=== PATIENT | female | born 1960 | race Caucasian/White ===

== ENCOUNTER 2017-01-27 09:43 | Emergency (ER) | payer OTHER ==
[~2017-01-27] VITALS: Ht 152.4 cm; Wt 69.9 kg
[2017-01-27] MEDS ORDERED: ALBU83IN (09:56)
[2017-01-27] MEDS ORDERED: SIMV40TA2 (09:56)
[2017-01-27] MEDS ORDERED: MELA5TAB17 (09:56)
[2017-01-27] MEDS ORDERED: ANOR1AER (09:56)
[2017-01-27] MEDS ORDERED: CLOP75TA2 (09:56)
[2017-01-27] MEDS ORDERED: CARV25TA (09:56)
[2017-01-27] MEDS ORDERED: NITR0.4S14 (09:56)
[2017-01-27] MEDS ORDERED: SIMV20TA2 (09:56)
[2017-01-27] MEDS ORDERED: OMEP40CA2 (09:56)
[2017-01-27] MEDS ORDERED: ANORO (09:56)
[2017-01-27] MEDS ORDERED: LISI-542 (09:56)
[2017-01-27] MEDS ORDERED: KETOROLAC 30 MG/ML VIAL (J1885) IV ONE (10:45)
[2017-01-27] MEDS ORDERED: GASTROGRAFIN SOLUTION 30ML (Q9963) As Ordered ONE (11:06)
[2017-01-27] MEDS ORDERED: GASTROGRAFIN SOLUTION 30ML PO ONE (11:15)
[2017-01-27 11:22] LABS: BASO # 0.1 K/mm3 (0.0-0.2); BASO % 0.8 % (0.0-1.0); EOS # 0.1 K/mm3 (0.0-0.50); LARGE UNSTAINED CELL # 0.1 K/mm3 (0.0-0.4); LARGE UNSTAINED CELL % 1.1 % (0.0-4.0); LYMPH # 1.9 K/mm3 (1.5-4.5); LYMPH % 20.1 % (24.0-44.0); MEAN CORPUSCULAR HEMOGLOBIN 32.2 pg (27.0-33.0); MEAN CORPUSCULAR HGB CONC 32.8 g/dl (32.0-36.5); MEAN CORPUSCULAR VOLUME 98.1 fl (80.0-96.0); MONO # 0.4 K/mm3 (0.0-0.8); MONO % 4.1 % (0.0-5.0); NEUTROPHILS # 6.5 K/mm3 (1.8-7.7); NEUTROPHILS % 72.9 % (36.0-66.0); PLATELET COUNT, AUTOMATED 183 k/mm3 (150-450); RED CELL DISTRIBUTION WIDTH 13.8 % (11.5-14.5); WHITE BLOOD COUNT 8.9 K/mm3 (4.0-10.0)
[2017-01-27] MEDS ORDERED: GASTROGRAFIN SOLUTION 30ML (Q9963) PO ONE (11:45)
[2017-01-27 11:47] LABS: ALBUMIN 3.5 GM/DL (3.2-5.2); ALBUMIN/GLOBULIN RATIO 0.76 (1.00-1.93); ALKALINE PHOSPHATASE 113 U/L (45-117); ALT/SGPT 18 U/L (12-78); AMYLASE 47 U/L (25-115); ANION GAP 4 MEQ/L (8-16); AST/SGOT 12 U/L (15-37); BILIRUBIN,DIRECT 0.1 MG/DL (0.0-0.2); BILIRUBIN,TOTAL 0.4 MG/DL (0.2-1.0); BLOOD UREA NITROGEN 13 MG/DL (7-18); CALCIUM LEVEL 9.5 MG/DL (8.5-10.1); CARBON DIOXIDE LEVEL 28 MEQ/L (21-32); CHLORIDE LEVEL 105 MEQ/L (98-107); CREATININE FOR GFR 0.63 MG/DL (0.55-1.02); GLOMERULAR FILTRATION RATE > 60.0 (>51); GLUCOSE, FASTING 121 MG/DL (70-105); POTASSIUM SERUM 4.4 MEQ/L (3.5-5.1); SODIUM LEVEL 137 MEQ/L (136-145); TOTAL PROTEIN 8.1 GM/DL (6.4-8.2)
[2017-01-27] MEDS ORDERED: ISOVUE-370 76% 100ML VIAL (Q9967) As Ordered ONE (12:10)
[2017-01-27 13:12] VITALS: BP 115/46
[2017-01-27] MEDS ORDERED: NORCOTAB PO (13:13)
--- NOTE | 2017-01-27 13:29 | REP ---
CT abdomen and pelvis with IV and oral contrast: History: Epigastric pain. Right upper quadrant pain. History of multiple hernias. Question gallstone. Comparison CT study is from February 18, 2014. CT contrast dose: 100 mL of Isovue [address] findings: Preliminary meat stocker radiograph is unremarkable. The lung bases are essentially clear. There is a bolus in the left lower lobe anteromedially. This it is unchanged. The liver and the spleen are normal in size and homogeneous in texture. There is a small accessory splenule again noted. No adrenal lesion is seen. The pancreas is unremarkable. There are two calcified gallstones in the gallbladder. The largest of these measures 1.1 cm. The other is in the gallbladder neck. No intrahepatic biliary ductal dilation is observed. No adrenal lesion is seen. There is no evidence of hydronephrosis on either side. No renal mass or significant cyst is seen. There is an aortobifemoral bypass graft which is patent. The [place] distal aorta is occluded. Small and large intestinal bowel loops are unremarkable. No uterine or ovarian abnormality is seen. The urinary bladder is largely empty at the time of scanning. No bony destructive lesion is seen. There are two ventral hernias located above the level of the umbilicus each transmitting intra-abdominal fat. The more cephalic abdominal wall defect measures 1.9 cm in right to left dimension. The larger more caudal defect in the anterior abdominal wall measures 2.6 cm medial to lateral. Impression: Two epigastric hernias, each transmitting omental fat. Opaque gallstones. No other significant abnormality. Signed by Sulaiman Mason MD 01/27/2017 02:48 P
== END 2017-01-27 13:26 | disposition home or self-care (01) ==
LOC: M ED 09:43
DX: K80.70 Calculus of gallbladder and bile duct without cholecystitis without obstruction (principal); I10 Essential (primary) hypertension; I25.2 Old myocardial infarction; Z72.0 Tobacco use
CPT/HCPCS: 36415; 74177; 80048; 80076; 81001; 82150; 83605; 83690; 85025; 96374; 99284; J1885; Q9963; Q9967

== ENCOUNTER 2017-05-02 10:34 | Inpatient (IN) | payer OTHER ==
[~2017-05-02] VITALS: Ht 152.4 cm; Wt 69.9 kg
[~2017-05-02 10:34] MED LIST: ALBU83IN INH; ANOR1AER INH; ANORO; CARV25TA PO; CLOP75TA2; LISI-542 PO; MELA5TAB17 PO; NITR0.4S14 SL; NORCOTAB PO; OMEP40CA2 PO; SIMV20TA2 PO; SIMV40TA2
[2017-05-02] MEDS ORDERED: NS 1,000 ML IV ONE (11:15)
[2017-05-02] MEDS ORDERED: ONDANSETRON 4MG/2ML VIAL (J2405) IV ONE (11:15)
[2017-05-02] MEDS: MORPHINE 4 MG/ML 1ML SYRINGE IV PRN ×2 (11:29→12:36)
[2017-05-02 11:31] LABS: BASO % 0.2 % (0.0-1.0); EOS % 0.1 % (0.0-3.0); IMMATURE GRANULOCYTE % 0.6 % (0-0); LYMPH # 1.7 10^3/uL (1.5-4.5); MEAN CORPUSCULAR HEMOGLOBIN 31.7 pg (27.0-33.0); MEAN CORPUSCULAR HGB CONC 33.6 g/dl (32.0-36.5); MEAN CORPUSCULAR VOLUME 94.4 fl (80.0-96.0); MONO # 1.8 10^3/uL (0.0-0.8); MONO % 10.6 % (0.0-5.0); NEUTROPHILS # 13.3 10^3/uL (1.8-7.7); NEUTROPHILS % 78.5 % (36.0-66.0); PLATELET COUNT, AUTOMATED 185 10^3/uL (150-450); RED CELL DISTRIBUTION WIDTH 13.7 % (11.5-14.5)
[2017-05-02 11:53] LABS: ALBUMIN 3.2 GM/DL (3.2-5.2); ALBUMIN/GLOBULIN RATIO 0.67 (1.00-1.93); ALKALINE PHOSPHATASE 101 U/L (45-117); ALT/SGPT 15 U/L (12-78); ANION GAP 8 MEQ/L (8-16); AST/SGOT 8 U/L (7-37); BILIRUBIN,DIRECT 0.3 MG/DL (0.0-0.2); BILIRUBIN,TOTAL 1.2 MG/DL (0.2-1.0); BLOOD UREA NITROGEN 9 MG/DL (7-18); CALCIUM LEVEL 9.2 MG/DL (8.5-10.1); CARBON DIOXIDE LEVEL 27 MEQ/L (21-32); CHLORIDE LEVEL 99 MEQ/L (98-107); CREATININE FOR GFR 0.58 MG/DL (0.55-1.02); GLOMERULAR FILTRATION RATE > 60.0 (>51); GLUCOSE, FASTING 136 MG/DL (70-105); POTASSIUM SERUM 3.9 MEQ/L (3.5-5.1); SODIUM LEVEL 134 MEQ/L (136-145)
[2017-05-02] MEDS ORDERED: MORPHINE 2 MG/ML 1ML SYRINGE IV ONE (20:30)
--- NOTE | 2017-05-02 21:10 | REPUSA ---
Clinical history: Pain. Technique: T2 weighted images of the upper abdomen were obtained. MIP images of the biliary ducts wit h 3-D reconstructions were obtained for the cholangiogram portion of the study. No comparison is available. Findings: The biliary ducts demonstrate normal caliber and contour. No stenosis, narrowing, or intral uminal filling defect is seen. The gallbladder contains a fluid fluid level. There is also several sm all gallstones seen within the gallbladder. One stone located in the gallbladder neck. There is moder ate gallbladder wall thickening. The common bile duct is within normal limits. There is no intrahepat ic biliary ductal dilatation. The pancreatic duct is not visualized. The visualized portions of the l iver, spleen, pancreas, and adrenal glands are unremarkable. There is no abdominal lymphadenopathy. I s a small amount of. Rodrick cystic free fluid. Small bilateral renal cysts are noted. The osseous struc tures and soft tissues are unremarkable. Impression: 1. Cholelithiasis with gallbladder sludge. Gallbladder wall thickening with small amount of perichole cystic free fluid. No evidence of biliary ductal dilatation. Findings are suspicious for early acute cholecystitis. Ultrasound is recommended if there is further clinical concern. 2. Small bilateral renal cysts.
[2017-05-02] MEDS ORDERED: METOCLOPRAMIDE INJ 10MG/2ML VIAL (J2765) IV PRN (21:30)
[2017-05-02] MEDS ORDERED: ONDANSETRON 4MG/2ML VIAL (J2405) IV PRN (21:30)
[2017-05-02] MEDS ORDERED: PERCOCET 5MG/325MG TAB PO PRN (21:30)
[2017-05-02] MEDS ORDERED: MORPHINE 2 MG/ML 1ML SYRINGE IV PRN (21:30)
[2017-05-02] MEDS ORDERED: KETOROLAC 30 MG/ML VIAL (J1885) IV PRN (21:30)
[2017-05-02] MEDS ORDERED: PROMETHAZINE INJ 25 MG/ML VIAL (J2550) IV PRN (21:30)
[2017-05-02 23:32] VITALS: BP 135/63
[2017-05-02 23:33] VITALS: BP 135/63
[2017-05-03] VITALS (7 sets, daily range): BP systolic 106–152; BP diastolic 50–68
[2017-05-03] MEDS: MORPHINE 4 MG/ML 1ML SYRINGE IV PRN ×2 (00:01→09:56)
[2017-05-03] MEDS: PIPERACILLIN/TAZOBACTAM SOD 3.375 GM in APPROPRIATE DILUENT 1 EA IV SCH ×5 (00:36→23:56)
[2017-05-03] MEDS: NS 1,000 ML IV SCH ×2 (05:59)
[2017-05-03 06:45] LABS: MEAN CORPUSCULAR HEMOGLOBIN 31.4 pg (27.0-33.0); MEAN CORPUSCULAR HGB CONC 32.6 g/dl (32.0-36.5); MEAN CORPUSCULAR VOLUME 96.3 fl (80.0-96.0); PLATELET COUNT, AUTOMATED 152 10^3/uL (150-450); RED CELL DISTRIBUTION WIDTH 13.8 % (11.5-14.5)
[2017-05-03 07:21] LABS: ALBUMIN 2.6 GM/DL (3.2-5.2); ALBUMIN/GLOBULIN RATIO 0.65 (1.00-1.93); ALKALINE PHOSPHATASE 82 U/L (45-117); ALT/SGPT 15 U/L (12-78); ANION GAP 7 MEQ/L (8-16); AST/SGOT 9 U/L (7-37); BILIRUBIN,TOTAL 1.4 MG/DL (0.2-1.0); BLOOD UREA NITROGEN 9 MG/DL (7-18); CALCIUM LEVEL 8.3 MG/DL (8.5-10.1); CARBON DIOXIDE LEVEL 26 MEQ/L (21-32); CHLORIDE LEVEL 105 MEQ/L (98-107); CREATININE FOR GFR 0.51 MG/DL (0.55-1.02); GLOMERULAR FILTRATION RATE > 60.0 (>51); GLUCOSE, FASTING 76 MG/DL (70-105); POTASSIUM SERUM 3.6 MEQ/L (3.5-5.1); SODIUM LEVEL 138 MEQ/L (136-145); TOTAL PROTEIN 6.6 GM/DL (6.4-8.2)
[2017-05-03] MEDS: CARVedilol 12.5 MG TAB PO SCH ×2 (09:00→21:00)
[2017-05-03] MEDS: LISINOPRIL 5 MG TAB PO SCH (09:00)
[2017-05-03] MEDS ORDERED: NITROGLYCERIN 0.4 MG SUBL TABLET SL PRN (09:30)
[2017-05-03] MEDS ORDERED: IPRATROPIUM 0.5MG/ALBUTEROL 2.5MG INH SOL UD 3ML (DUONEB)(J7620) NEB PRN (09:30)
[2017-05-03] MEDS: PANTOPRAZOLE 40MG INJ (PROTONIX) (C9113) IV SCH (09:55)
[2017-05-03] MEDS: PERCOCET 5MG/325MG TAB PO PRN (17:02)
[2017-05-03] MEDS ORDERED: SIMVASTATIN 20 MG TAB PO SCH (21:00)
[2017-05-04] VITALS (8 sets, daily range): BP systolic 118–188; BP diastolic 57–79
[2017-05-04] MEDS: PERCOCET 5MG/325MG TAB PO PRN (03:23)
[2017-05-04] MEDS: PIPERACILLIN/TAZOBACTAM SOD 3.375 GM in APPROPRIATE DILUENT 1 EA IV SCH ×2 (05:50→11:44)
--- NOTE | 2017-05-04 07:13 | HPE ---
DATE OF ADMISSION: 05/02/2017 HISTORY OF PRESENT ILLNESS: The patient is a 56-year-old female who presented to the emergency room yesterday with abdominal pain, right upper quadrant, but also epigastric and she stated that her gallstones were bothering her epigastric hernia. She has had an epigastric hernia that has been symptomatic over the years and presents now for a possible cholecystitis. She was seen a few months ago for right upper quadrant pain, epigastric pain and this revealed epigastric hernia with omental fat within this but no other significant abnormality. The patient did have some gallstones. She has not had any acholic stools. No bilirubinuria. She has had no fevers or chills. She presents now with this epigastric pain, came to the emergency room with elevated white count of 17,000, some mildly elevated liver function tests and evidence of gallstones, without evidence of gallbladder wall thickening. However, she did have questionable common bile duct that was slightly enlarged. She had some gallbladder when this was found and with this slight elevation of the liver function tests, she underwent an MRCP which showed gallbladder wall thickening with a small amount of pericholecystic fluid. No evidence of biliary ductal dilatation, but significant for possible early acute cholecystitis. In any case, at this point given her epigastric pain, discomfort and right upper quadrant pain and discomfort she was admitted for further evaluation, antibiotics and treatment. PAST MEDICAL HISTORY: Her past medical history is significant for history of hypertension, history of gallstones, history of hiatal hernia, history of ventral hernia, history of COPD, history of hyperlipidemia, history of cardiac stents, history of C-sections, history of peripheral artery bypass. MEDICATIONS: Include the following: - simvastatin - albuterol - nitroglycerin - lisinopril - carvedilol - omeprazole - melatonin PHYSICAL EXAMINATION: Reveals a 56-year-old female who looks older than stated age. HEENT is unremarkable. Neck: Supple without any lymphadenopathy. Lungs are clear to auscultation without crackles, wheezes or rhonchi. Heart is regular without murmur. Abdomen is soft, nondistended, nontender except in the epigastric area where she has some mild tenderness to palpation as well as in the right upper quadrant. She has some mild tenderness to palpation. She has some epigastric hernias that are not reducible at this time but it feels as though omental fat or preperitoneal fat that is within these. IMPRESSION AND PLAN: The patient has evidence of probable cholecystitis. Given her ventral hernias at this time, I am very concerned that these ventral hernias will be difficult to work around to take out her gallbladder and may not be amendable to a laparoscopic approach for this cholecystectomy. And in addition, I do feel that given that she has these ventral hernias she may benefit from a ventral hernia repair as well. She has had a previous ventral hernia repair in the past, which suggests she probably had mesh within this, also concerning for possible infection perioperatively. She has had any aortobifemoral bypass in the past and does not complain of claudication at this time. The patient has evidence of cholecystitis. Will plan on IV fluids, IV antibiotics, make her nothing by mouth (npo) overnight and watch her over the ensuing 12 to 24 hours; depending on how she does, if she has some progressive improvement and resolution of her abdominal pain, will start her on some clear liquids and then possibly advance her diet as tolerated. It would the best option for her if we can cool down her gallbladder enough to perform an elective cholecystectomy and at that point if there is no bile spillage and overall appears to be an unaffected area it may be reasonable to proceed with a ventral hernia repair at that same time, understanding that she would have an increased risk of perioperative infection. She understands and would like to continue on the current plan/proposed treatment for now.
[2017-05-04] MEDS: PANTOPRAZOLE 40MG INJ (PROTONIX) (C9113) IV SCH (08:41)
[2017-05-04] MEDS: CARVedilol 12.5 MG TAB PO SCH (08:44)
[2017-05-04] MEDS: LISINOPRIL 5 MG TAB PO SCH ×2 (08:45→13:14)
[2017-05-04] MEDS ORDERED: SLF 3 ML SYR IV PRN (09:00)
--- NOTE | 2017-05-04 13:35 | IPN ---
DATE: 05/04/2017 Patient overall has been afebrile throughout the night and she has had decreasing pain without nausea, without vomiting. And no fevers, no chills. She has tolerated some liquids without significant problems. And overall having slow but progressive improvement of her symptoms. On her physical exam, she still has some mild tenderness in the epigastric area where her hernias are. Although, I do feel that probably with this localized inflammation of her gallbladder she has some inflammatory changes in this area that is causing some mild distension and gastrointestinal (GI) issues, which are causing some mild distension in this upper abdomen, possibly making her hernia slightly more symptomati, but does not appear to have a truly incarcerated bowel or intestine within this. She otherwise, seems to be making some slow but progressive improvement. IMPRESSION/PLAN: Patient has cholecystitis. Seems to be making some nice improvements slowly clinically. At this point, my recommendation is that we progress her diet to low fat diet and when she is tolerating a low-fat diet will discharge to her home. This may actually be today given her significant improvement over the last 24 hours. And I anticipate we will discharge her on some oral antibiotics with the plan in the future for a ventral hernia repair as well as laparoscopic cholecystectomy. This may be a combined operative intervention but we will have to see how she does with resolution of this infectious process.
[2017-05-04] MEDS ORDERED: SLF 3 ML SYR IV SCH (14:00)
[2017-05-04] MEDS ORDERED: PERCOCET PO (14:19)
[2017-05-04] MEDS ORDERED: AMOX875T2 PO (14:19)
[2017-05-04] MEDS ORDERED: AUGMENTIN 875 MG TAB PO SCH (21:00)
--- NOTE | 2017-05-05 07:11 | REP ---
Clinical: Right upper quadrant pain. Technique: Real time fernandez scale ultrasound examination using curved array transducer. Findings: A positive sonographic Eastman's sign is elicited and the gallbladder is distended and demonstrates cholelithiasis within 8 mm gallstone lodged at the neck of the gallbladder. The common bile duct is mildly dilated to 8.1 mm and findings are consistent with acute cholecystitis. Correlation is recommended. Fatty infiltration to the liver noted without focal hepatic lesion. Limited evaluation the pancreas is unremarkable. The right kidney measures 9.9 x 5.6 x 4.6 cm without evidence for hydronephrosis. No ascites. Impression: Findings described above suggest acute cholecystitis and correlation is recommended. Signed by Mkcinley Gentile MD 05/02/2017 12:22 P
== END 2017-05-04 15:00 | disposition home or self-care (01) ==
LOC: M ED 10:34 → M ED INP 21:28 → M PED 23:30
PROVIDERS: ADMIT Surgery; ATTEND Surgery
DX: K80.00 Calculus of gallbladder with acute cholecystitis without obstruction (principal); J44.9 Chronic obstructive pulmonary disease, unspecified; I10 Essential (primary) hypertension; K44.9 Diaphragmatic hernia without obstruction or gangrene; K43.9 Ventral hernia without obstruction or gangrene; E78.5 Hyperlipidemia, unspecified; Z95.5 Presence of coronary angioplasty implant and graft; Z98.62 Peripheral vascular angioplasty status; Z79.899 Other long term (current) drug therapy

== ENCOUNTER 2017-06-05 08:37 | Emergency (ER) | payer OTHER ==
[2017-06-05] MEDS: NS 500 ML IV (09:15)
[2017-06-05] MEDS: ONDANSETRON 4MG/2ML VIAL (J2405) IV (09:25)
[2017-06-05] MEDS: MORPHINE 4 MG/ML 1ML SYRINGE IV ×3 (09:25→12:41)
[2017-06-05 09:26] LABS: BASO # 0.1 10^3/uL (0.0-0.2); BASO % 0.9 % (0.0-1.0); EOS # 0.2 10^3/uL (0.0-0.50); HEMOGLOBIN 14.5 g/dl (12.0-16.0); IMMATURE GRANULOCYTE % 0.3 % (0-0); LYMPH # 2.5 10^3/uL (1.5-4.5); LYMPH % 21.2 % (24.0-44.0); MEAN CORPUSCULAR HEMOGLOBIN 31.7 pg (27.0-33.0); MEAN CORPUSCULAR VOLUME 96.1 fl (80.0-96.0); MONO # 0.9 10^3/uL (0.0-0.8); MONO % 7.8 % (0.0-5.0); NEUTROPHILS # 7.9 10^3/uL (1.8-7.7); NEUTROPHILS % 67.8 % (36.0-66.0); PLATELET COUNT, AUTOMATED 186 10^3/uL (150-450); RED BLOOD COUNT 4.58 10^6/uL (4.00-5.40); RED CELL DISTRIBUTION WIDTH 13.8 % (11.5-14.5); WHITE BLOOD COUNT 11.6 10^3/uL (4.0-10.0)
[2017-06-05 09:48] LABS: KETONE, URINE AUTO RFX TRACE mg/dL (NEGATIVE); LEUKOCYTE ESTERASE UR AUTO RFX NEGATIVE (NEGATIVE); MUCUS, URINE RFX SMALL (NEGATIVE); NITRITE, URINE AUTO RFX NEGATIVE (NEGATIVE); RBC, URINE AUTO RFX 0 /HPF (0-3); SPECIFIC GRAVITY UR AUTO RFX 1.029 (1.002-1.035); SQUAM EPITHELIAL CELL UR AURFX 2 /HPF (0-6); WBC, URINE AUTO RFX 0 /HPF (0-3)
[2017-06-05 09:52] LABS: ALBUMIN 3.6 GM/DL (3.2-5.2); ALBUMIN/GLOBULIN RATIO 0.82 (1.00-1.93); ALKALINE PHOSPHATASE 108 U/L (45-117); ALT/SGPT 22 U/L (12-78); AMYLASE 38 U/L (25-115); ANION GAP 7 MEQ/L (8-16); AST/SGOT 15 U/L (7-37); BILIRUBIN,DIRECT 0.1 MG/DL (0.0-0.2); BILIRUBIN,TOTAL 0.5 MG/DL (0.2-1.0); BLOOD UREA NITROGEN 16 MG/DL (7-18); CALCIUM LEVEL 9.3 MG/DL (8.5-10.1); CARBON DIOXIDE LEVEL 26 MEQ/L (21-32); CHLORIDE LEVEL 105 MEQ/L (98-107); CREATININE FOR GFR 0.61 MG/DL (0.55-1.02); GLOMERULAR FILTRATION RATE > 60.0 (>51); GLUCOSE, FASTING 140 MG/DL (70-105); LIPASE 127 U/L (73-393); POTASSIUM SERUM 4.3 MEQ/L (3.5-5.1); SODIUM LEVEL 138 MEQ/L (136-145)
[2017-06-05] MEDS: CEFTRIAXONE SOD 1 GM in APPROPRIATE DILUENT 1 EA IV (12:30)
== END 2017-06-05 13:43 | disposition home or self-care (01) ==
LOC: M ED 08:37
DX: K80.60 Calculus of gallbladder and bile duct with cholecystitis, unspecified, without obstruction (principal); K43.9 Ventral hernia without obstruction or gangrene; I10 Essential (primary) hypertension; J44.9 Chronic obstructive pulmonary disease, unspecified; E78.00 Pure hypercholesterolemia, unspecified; Z86.73 Personal history of transient ischemic attack (TIA), and cerebral infarction without residual deficits; Z79.899 Other long term (current) drug therapy; Z79.51 Long term (current) use of inhaled steroids; F17.210 Nicotine dependence, cigarettes, uncomplicated
CPT/HCPCS: J2405

== ENCOUNTER → 2017-06-24 | Day surgery (SDC) | payer OTHER ==
[~2017-06-24] MED LIST changes: -ALBU83IN INH; -ANOR1AER INH; -ANORO; -CARV25TA PO; +CEFAZOLIN SOD 1 GM in APPROPRIATE DILUENT 1 EA IV; -CLOP75TA2; +LIDOCAINE 2% INJ 100 MG/5 ML SDV (FOR ANES.) As Ordered; -LISI-542 PO; +LR 1,000 ML IV; -MELA5TAB17 PO; -NITR0.4S14 SL; -NORCOTAB PO; -OMEP40CA2 PO; +PROPOFOL 200 MG/20 ML VIAL As Ordered; +ROCURONIUM BROMIDE 50 MG/5 ML VIAL As Ordered; -SIMV20TA2 PO; -SIMV40TA2; +fentaNYL 250 MCG/5 ML INJECTION (J3010) As Ordered
== END ==
LOC: M SDC 08:50
DX: K43.2 Incisional hernia without obstruction or gangrene (principal); K80.20 Calculus of gallbladder without cholecystitis without obstruction; Z53.09 Procedure and treatment not carried out because of other contraindication

== ENCOUNTER 2017-07-24 15:19 | Emergency (ER) | payer OTHER ==
[2017-07-24 16:12] LABS: BASO # 0.1 10^3/uL (0.0-0.2); BASO % 0.3 % (0.0-1.0); EOS # 0.3 10^3/uL (0.0-0.50); EOS % 2.1 % (0.0-3.0); HEMATOCRIT 41.4 % (36.0-47.0); HEMOGLOBIN 13.5 g/dl (12.0-16.0); IMMATURE GRANULOCYTE % 0.6 % (0-3.0); LYMPH # 2.6 10^3/uL (1.5-4.5); LYMPH % 18.2 % (24.0-44.0); MEAN CORPUSCULAR HEMOGLOBIN 31.4 pg (27.0-33.0); MEAN CORPUSCULAR HGB CONC 32.6 g/dl (32.0-36.5); MEAN CORPUSCULAR VOLUME 96.3 fl (80.0-96.0); MONO # 1.4 10^3/uL (0.0-0.8); MONO % 9.4 % (0.0-5.0); NEUTROPHILS % 69.4 % (36.0-66.0); PLATELET COUNT, AUTOMATED 236 10^3/uL (150-450); RED CELL DISTRIBUTION WIDTH 13.9 % (11.5-14.5); WHITE BLOOD COUNT 14.4 10^3/uL (4.0-10.0)
[2017-07-24] MEDS: NITROGLYCERIN 0.4 MG SUBL TABLET SL (16:12)
[2017-07-24] MEDS: ASPIRIN 81 MG CHEW TABLET PO (16:22)
[2017-07-24 16:24] LABS: PARTIAL THROMBOPLASTIN TIME 31.4 SECONDS (26.8-37.9)
[2017-07-24 16:29] LABS: ANION GAP 8 MEQ/L (8-16); BLOOD UREA NITROGEN 16 MG/DL (7-18); CALCIUM LEVEL 9.2 MG/DL (8.5-10.1); CARBON DIOXIDE LEVEL 25 MEQ/L (21-32); CHLORIDE LEVEL 106 MEQ/L (98-107); CPK CREATINE PHOSPHOKINASE 23 U/L (26-192); CREATININE FOR GFR 0.73 MG/DL (0.55-1.30); GLOMERULAR FILTRATION RATE > 60.0 (>51); GLUCOSE, FASTING 127 MG/DL (70-100); MB/CK RELATIVE INDEX 4.34 (< OR =4); POTASSIUM SERUM 4.2 MEQ/L (3.5-5.1); SODIUM LEVEL 139 MEQ/L (136-145); TROPONIN I < 0.02 NG/ML (< 0.10)
[2017-07-24 22:07] LABS: CK-MB VALUE MASS 5.2 NG/ML (0.0-3.6); CPK CREATINE PHOSPHOKINASE 55 U/L (26-192); MB/CK RELATIVE INDEX 9.45 (< OR =4)
[2017-07-24 22:11] LABS: TROPONIN I 1.73 NG/ML (< 0.10)
[2017-07-24] MEDS: NICOTINE 14 MG/24 HR TRANSDERMAL TD (22:30)
[2017-07-24] MEDS: HEPARIN SOD (PORCINE) 5000 UNITS/ML VIAL IV (22:41)
[2017-07-24] MEDS: HEPARIN DRIP 25,000 UNITS in APPROPRIATE DILUENT 1 EA IV (22:43)
== END 2017-07-24 23:39 | disposition home or self-care (01) ==
LOC: M ED 15:19
DX: I21.4 Non-ST elevation (NSTEMI) myocardial infarction (principal); I10 Essential (primary) hypertension; J44.9 Chronic obstructive pulmonary disease, unspecified; I25.10 Atherosclerotic heart disease of native coronary artery without angina pectoris; K44.9 Diaphragmatic hernia without obstruction or gangrene; K43.9 Ventral hernia without obstruction or gangrene; Z95.5 Presence of coronary angioplasty implant and graft; F17.210 Nicotine dependence, cigarettes, uncomplicated
CPT/HCPCS: 71045

== ENCOUNTER 2017-08-04 16:35 | Emergency (ER) | payer MEDICAID, SELFPAY, OTHER ==
[2017-08-04] MEDS: ONDANSETRON 4MG/2ML VIAL (J2405) IV ×2 (18:11)
[2017-08-04] MEDS: NS 1,000 ML IV ×2 (18:11)
[2017-08-04] MEDS: MORPHINE 4 MG/ML 1ML VIAL/SYRINGE (J2270) IV (18:12)
[2017-08-04] MEDS: MORPHINE 4 MG/ML 1ML VIAL (J2270) IV (18:12)
[2017-08-04 18:16] LABS: BASO # 0.1 10^3/uL (0.0-0.2); BASO % 0.6 % (0.0-1.0); EOS # 0.2 10^3/uL (0.0-0.50); EOS % 1.5 % (0.0-3.0); HEMATOCRIT 42.5 % (36.0-47.0); HEMOGLOBIN 14.2 g/dl (12.0-16.0); IMMATURE GRANULOCYTE % 0.3 % (0-3.0); LYMPH # 2.9 10^3/uL (1.5-4.5); LYMPH % 24.2 % (24.0-44.0); MEAN CORPUSCULAR HEMOGLOBIN 31.4 pg (27.0-33.0); MEAN CORPUSCULAR HGB CONC 33.4 g/dl (32.0-36.5); MONO # 0.9 10^3/uL (0.0-0.8); NEUTROPHILS # 7.7 10^3/uL (1.8-7.7); NEUTROPHILS % 65.4 % (36.0-66.0); PLATELET COUNT, AUTOMATED 247 10^3/uL (150-450); RED BLOOD COUNT 4.52 10^6/uL (4.00-5.40); RED CELL DISTRIBUTION WIDTH 13.4 % (11.5-14.5); WHITE BLOOD COUNT 11.8 10^3/uL (4.0-10.0)
[2017-08-04 18:25] LABS: INR 1.03; PROTHROMBIN TIME 13.6 SECONDS (12.4-14.5)
[2017-08-04 18:26] LABS: PARTIAL THROMBOPLASTIN TIME 33.7 SECONDS (26.8-37.9)
[2017-08-04 18:50] LABS: ALBUMIN 3.5 GM/DL (3.2-5.2); ALBUMIN/GLOBULIN RATIO 0.88 (1.00-1.93); ALKALINE PHOSPHATASE 157 U/L (45-117); ALT/SGPT 60 U/L (12-78); AMYLASE 37 U/L (25-115); ANION GAP 9 MEQ/L (8-16); AST/SGOT 35 U/L (7-37); BILIRUBIN,DIRECT 0.2 MG/DL (0.0-0.2); BILIRUBIN,TOTAL 0.5 MG/DL (0.2-1.0); BLOOD UREA NITROGEN 16 MG/DL (7-18); CALCIUM LEVEL 8.8 MG/DL (8.5-10.1); CARBON DIOXIDE LEVEL 23 MEQ/L (21-32); CHLORIDE LEVEL 107 MEQ/L (98-107); CPK CREATINE PHOSPHOKINASE 63 U/L (26-192); CREATININE FOR GFR 0.62 MG/DL (0.55-1.30); GLOMERULAR FILTRATION RATE > 60.0 (>51); GLUCOSE, FASTING 112 MG/DL (70-100); LIPASE 109 U/L (73-393); POTASSIUM SERUM 4.3 MEQ/L (3.5-5.1); SODIUM LEVEL 139 MEQ/L (136-145); TOTAL PROTEIN 7.5 GM/DL (6.4-8.2); TROPONIN I < 0.02 NG/ML (< 0.10)
[2017-08-04 18:51] LABS: CK-MB VALUE MASS 1.2 NG/ML (0.0-3.6)
[2017-08-04] MEDS: NORCO, ANEXSIA 5/325MG TABLET (HYDROcodone/ACETAMINOPHEN) PO ×2 (19:43)
== END 2017-08-04 19:43 | disposition home or self-care (01) ==
LOC: M ED 16:35
DX: K80.70 Calculus of gallbladder and bile duct without cholecystitis without obstruction (principal); I10 Essential (primary) hypertension; J44.9 Chronic obstructive pulmonary disease, unspecified; K21.9 Gastro-esophageal reflux disease without esophagitis; E78.9 Disorder of lipoprotein metabolism, unspecified; I25.2 Old myocardial infarction; F17.210 Nicotine dependence, cigarettes, uncomplicated; Z91.041 Radiographic dye allergy status; Z79.899 Other long term (current) drug therapy; Z79.82 Long term (current) use of aspirin; Z79.02 Long term (current) use of antithrombotics/antiplatelets
CPT/HCPCS: J2270

== ENCOUNTER 2017-10-14 07:38 | Day surgery (SDC) | payer MEDICAID ==
[2017-10-14] MEDS ORDERED: MIDAZOLAM INJ 2 MG/2 ML VIAL (J2250) As Ordered (08:08)
[2017-10-14] MEDS ORDERED: fentaNYL 250 MCG/5 ML INJECTION (J3010) As Ordered (08:08)
[2017-10-14] MEDS ORDERED: LIDOCAINE 2% INJ 100 MG/5 ML SDV (FOR ANES.) As Ordered (08:08)
[2017-10-14] MEDS ORDERED: PROPOFOL 200 MG/20 ML VIAL As Ordered (08:08)
[2017-10-14] MEDS ORDERED: ROCURONIUM BROMIDE 50 MG/5 ML VIAL As Ordered (08:08)
[2017-10-14] MEDS: LR 1,000 ML IV ×3 (08:34→19:12)
[2017-10-14] MEDS: ceFAZolin 1GM INJ (J0690 PER 500MG) As Ordered (09:19)
[2017-10-14] MEDS ORDERED: NEOSTIGMINE 10 MG/10 ML VIAL (J2710) As Ordered (10:36)
[2017-10-14] MEDS ORDERED: GLYCOPYRROLATE INJ 0.2 MG/ML 2 ML VIAL As Ordered (10:36)
[2017-10-14] MEDS ORDERED: ONDANSETRON 4MG/2ML VIAL (J2405) As Ordered (10:37)
[2017-10-14] MEDS ORDERED: dexameTHASONE 4 MG/ML 1ML VIAL (J1100) As Ordered ×2 (10:37)
[2017-10-14] MEDS ORDERED: KETOROLAC 60 MG/2 ML VIAL (J1885) As Ordered (10:37)
[2017-10-14] MEDS ORDERED: fentaNYL 100 MCG/2 ML INJECTION (J3010) As Ordered (11:20)
[2017-10-14] MEDS: LIDOCAINE W/EPINEPHRINE 1% 20ML VIAL As Ordered (11:50)
[2017-10-14] MEDS: BUPIVACAINE LIPOSOME/PF 1.3% 20 ML VIAL (13.3MG/ML)(EXPAREL) As Ordered (11:50)
[2017-10-14] MEDS: BUPIVACAINE HCL 0.25% 30 ML VIAL As Ordered (11:50)
[2017-10-14] MEDS ORDERED: METOCLOPRAMIDE INJ 10MG/2ML VIAL (J2765) IV (12:15)
[2017-10-14] MEDS ORDERED: MORPHINE 10 MG/ML 1ML VIAL (J2270) IV (12:15)
[2017-10-14] MEDS ORDERED: ONDANSETRON 4MG/2ML VIAL (J2405) IV ×2 (12:15)
[2017-10-14] MEDS ORDERED: NORCO, ANEXSIA 5/325MG TABLET (HYDROcodone/ACETAMINOPHEN) PO (12:15)
[2017-10-14] MEDS: PERCOCET 5MG/325MG TAB PO ×3 (12:23→20:37)
[2017-10-14] MEDS: fentaNYL 100 MCG/2 ML INJECTION (J3010) IV ×2 (12:58→13:05)
[2017-10-14] MEDS ORDERED: hydrALAZINE INJ 20 MG/ML VIAL As Ordered (13:41)
[2017-10-14] MEDS: hydrALAZINE INJ 20 MG/ML VIAL IV ×2 (13:50→13:55)
[2017-10-14] MEDS: MORPHINE 4 MG/ML 1ML VIAL/SYRINGE (J2270) IV (14:48)
[2017-10-14] MEDS ORDERED: IPRATROPIUM 0.5MG/ALBUTEROL 2.5MG INH SOL UD 3ML (DUONEB)(J7620) NEB (15:15)
[2017-10-14] MEDS ORDERED: NITROGLYCERIN 0.4 MG SUBL TABLET SL (15:15)
[2017-10-14] MEDS ORDERED: MORPHINE 4 MG/ML 1ML VIAL/SYRINGE (J2270) IV (15:15)
[2017-10-14] MEDS ORDERED: PERCOCET 5MG/325MG TAB PO (15:15)
[2017-10-14] MEDS: NS 1,000 ML IV (16:48)
[2017-10-14] MEDS: KETOROLAC 30 MG/ML VIAL (J1885) IV ×2 (17:38→22:54)
[2017-10-14] MEDS: PIPERACILLIN/TAZOBACTAM SOD 3.375 GM in D5W MINI-BAG PLUS 50 ML IV ×2 (17:39→22:54)
[2017-10-14] MEDS: IPRATROPIUM 0.5MG/ALBUTEROL 2.5MG INH SOL UD 3ML (DUONEB)(J7620) NEB (19:45)
[2017-10-14] MEDS: CARVedilol 12.5 MG TAB PO (20:36)
[2017-10-14] MEDS: LISINOPRIL 10 MG TAB PO (20:36)
[2017-10-14] MEDS: DOCUSATE SODIUM 100 MG CAP PO (20:36)
[2017-10-14] MEDS: SENOKOT S TAB PO (20:36)
[2017-10-14] MEDS: VARENICLINE 0.5 MG TABLET PO (21:00)
[2017-10-15] MEDS: IPRATROPIUM 0.5MG/ALBUTEROL 2.5MG INH SOL UD 3ML (DUONEB)(J7620) NEB ×2 (04:26→07:08)
[2017-10-15] MEDS: KETOROLAC 30 MG/ML VIAL (J1885) IV (04:51)
[2017-10-15] MEDS: PIPERACILLIN/TAZOBACTAM SOD 3.375 GM in D5W MINI-BAG PLUS 50 ML IV (04:51)
[2017-10-15] MEDS: SENOKOT S TAB PO (09:07)
[2017-10-15] MEDS: CARVedilol 12.5 MG TAB PO (09:07)
[2017-10-15] MEDS: DOCUSATE SODIUM 100 MG CAP PO (09:07)
[2017-10-15] MEDS: PANTOPRAZOLE 40MG TAB (PROTONIX) PO (09:07)
[2017-10-15] MEDS ORDERED: SIMVASTATIN 40 MG TAB PO (21:00)
== END 2017-10-15 09:15 | disposition home or self-care (01) ==
LOC: M SDC 07:38 → M MS5PR 16:20
DX: K80.18 Calculus of gallbladder with other cholecystitis without obstruction (principal); K43.0 Incisional hernia with obstruction, without gangrene; N73.6 Female pelvic peritoneal adhesions (postinfective); I25.10 Atherosclerotic heart disease of native coronary artery without angina pectoris; I25.2 Old myocardial infarction; I10 Essential (primary) hypertension; E78.5 Hyperlipidemia, unspecified; K21.9 Gastro-esophageal reflux disease without esophagitis; K44.9 Diaphragmatic hernia without obstruction or gangrene; Z98.61 Coronary angioplasty status; Z79.82 Long term (current) use of aspirin; Z79.899 Other long term (current) drug therapy; Z91.041 Radiographic dye allergy status; I73.9 Peripheral vascular disease, unspecified; R00.2 Palpitations; F17.210 Nicotine dependence, cigarettes, uncomplicated; Z79.02 Long term (current) use of antithrombotics/antiplatelets
CPT/HCPCS: 47562

== ENCOUNTER → 2018-06-05 | Outpatient (CLI) | payer OTHER ==
[~2018-06-05] MED LIST changes: +ALBU83IN INH; +AMOX875T2 PO; +ANOR1AER INH; +ANORO; +ASPI81TA85 PO; +AUGM875T28 PO; +CARV25TA PO; -CEFAZOLIN SOD 1 GM in APPROPRIATE DILUENT 1 EA IV; +CLOP75TA2; -LIDOCAINE 2% INJ 100 MG/5 ML SDV (FOR ANES.) As Ordered; +LISI-542 PO; -LR 1,000 ML IV; +MELA5TAB17 PO; +NICO21DI34 TD; +NITR0.4S14 SL; +NORCOTAB PO; +OMEP40CA2 PO; +PERCOCET PO; +PLAV1TAB2 PO; -PROPOFOL 200 MG/20 ML VIAL As Ordered; -ROCURONIUM BROMIDE 50 MG/5 ML VIAL As Ordered; +SIMV20TA2 PO; +SIMV40TA2; +SIMV40TA2 PO; +TYLE325T5 PO; +VARE05TA PO; +ZOFR4TAB14 PO; -fentaNYL 250 MCG/5 ML INJECTION (J3010) As Ordered
--- NOTE | 2018-06-05 09:08 | REP ---
CT abdomen and pelvis without IV or oral contrast: History: Incisional hernia without obstruction or gangrene. Comparison CT study: January 27, 2017. CT findings: Preliminary head of talent management view of the abdomen shows a normal bowel gas pattern. There are right upper quadrant clips. The lung bases show a 3.6 cm bolus in the left lower lobe which is unchanged. Lung bases are otherwise clear. There is minimal linear fibrosis in the lingula. The liver and the spleen remain normal in size, homogeneous in texture. There is a small accessory splenule. The gallbladder is surgically absent with clips in the gallbladder fossa. No pancreatic abnormality is observed. No adrenal lesion is seen. There is an aortobifemoral bypass graft again seen. No retroperitoneal mass or adenopathy is seen. Small and large intestinal bowel loops are normal in caliber. No uterine or ovarian abnormality is seen. Urinary bladder is largely empty but appears unremarkable. No pelvic mass or adenopathy is seen. Bone window settings show no bony destructive lesions. The anterior abdominal wall is much improved. The largest epigastric ventral hernia defect is no longer apparent. There is a tiny epigastric anterior abdominal wall defect transmitting a small knuckle of omental fat just to the left of midline. This defect measures 14 mm in medial to lateral by 11 mm craniocaudal. No other abdominal wall defect is seen. There is subcutaneous fat streaking consistent with fibrosis in the anterior abdominal wall above the level of the umbilicus and there are two areas of edema or inflammation of the omental fat inside the abdomen at this level consistent with fibrosis. Impression: Status post ventral hernia repair as above. Aortobifemoral bypass graft in place. Post cholecystectomy. Electronically Signed by Sulaiman Mason MD 06/05/2018 09:26 A
== END ==
LOC: M RAD 08:00
PROVIDERS: ATTEND Surgery
DX: K43.2 Incisional hernia without obstruction or gangrene (principal)

== ENCOUNTER → 2018-06-05 | Outpatient (CLI) | payer OTHER ==
[2018-06-05 16:03] LABS: BASO # 0.1 10^3/uL (0.0-0.2); BASO % 0.8 % (0.0-1.0); EOS # 0.3 10^3/uL (0.0-0.50); EOS % 2.6 % (0.0-3.0); HEMATOCRIT 41.6 % (36.0-47.0); HEMOGLOBIN 13.7 g/dl (12.0-15.5); LYMPH % 41.2 % (24.0-44.0); MEAN CORPUSCULAR HEMOGLOBIN 31.1 pg (27.0-33.0); MEAN CORPUSCULAR HGB CONC 32.9 g/dl (32.0-36.5); MEAN CORPUSCULAR VOLUME 94.5 fl (80.0-96.0); MONO # 0.9 10^3/uL (0.0-0.8); MONO % 9.1 % (0.0-5.0); NEUTROPHILS # 4.5 10^3/uL (1.8-7.7); PLATELET COUNT, AUTOMATED 210 10^3/uL (150-450); WHITE BLOOD COUNT 9.8 10^3/uL (4.0-10.0)
[2018-06-05 16:21] LABS: ALBUMIN 3.3 GM/DL (3.2-5.2); ALT/SGPT 21 U/L (12-78); BILIRUBIN,TOTAL 0.2 MG/DL (0.2-1.0); BLOOD UREA NITROGEN 14 MG/DL (7-18); CALCIUM LEVEL 8.9 MG/DL (8.5-10.1); CARBON DIOXIDE LEVEL 25 MEQ/L (21-32); CHLORIDE LEVEL 106 MEQ/L (98-107); CHOLESTEROL LEVEL 118 MG/DL (<200); CHOLESTEROL RISK RATIO 2.622 (<5); CREATININE FOR GFR 0.58 MG/DL (0.55-1.30); GLOMERULAR FILTRATION RATE > 60.0 (>51); GLUCOSE, FASTING 118 MG/DL (70-100); HDL CHOLESTEROL 45 MG/DL (>40); LDL CHOLESTEROL 54 MG/DL (<100); NON-HDL-C 73 MG/DL; POTASSIUM SERUM 4.3 MEQ/L (3.5-5.1); SODIUM LEVEL 140 MEQ/L (136-145); TRIGLYCERIDES LEVEL 94 MG/DL (<150)
== END ==
LOC: M WUC 14:38
PROVIDERS: ATTEND Nurse Practitioner Family
DX: I10 Essential (primary) hypertension (principal); E78.49 Other hyperlipidemia

== ENCOUNTER → 2018-09-01 | Outpatient (CLI) | payer OTHER ==
[~2018-09-01] MED LIST changes: +HYDR-3715 PO; -NORCOTAB PO
--- NOTE | 2018-09-01 11:41 | REP ---
CHEST, TWO VIEWS: COMPARISON: 02/10/2016. There is no evidence of acute infiltrate. No pleural effusion is seen. The heart is normal in size. The mediastinal silhouette is unremarkable. The visualized osseous structures are intact. IMPRESSION: No acute pulmonary disease. Electronically Signed by César Choi MD 09/01/2018 03:26 P
== END ==
LOC: M WUC 10:51
PROVIDERS: ATTEND Nurse Practitioner Family
DX: J40 Bronchitis, not specified as acute or chronic (principal)

== ENCOUNTER 2018-09-09 08:20 | Emergency (ER) | payer OTHER ==
[~2018-09-09] VITALS: Ht 152.4 cm; Wt 70.0 kg
[2018-09-09] MEDS ORDERED: ALBUTEROL SULFATE 2.5 MG/0.5 ML INH NEB SOLN INH ONE (08:45)
[2018-09-09] MEDS ORDERED: methylPREDNISolone INJ 125 MG/2 ML VIAL (J2930) IV ONE (08:45)
[2018-09-09] MEDS ORDERED: IPRATROPIUM 0.5MG/ALBUTEROL 2.5MG INH SOL UD 3ML (DUONEB)(J7620) NEB ONE (08:45)
--- NOTE | 2018-09-09 09:14 | REP ---
Portable chest x-ray: Single view. History: Dyspnea and cough. Comparison study: September 01, 2018. Findings: EKG monitoring electrodes overlie the chest. The lungs are well inflated and clear. Heart size is normal. Pulmonary vasculature is not increased. No significant bony abnormality is seen. Impression: Negative portable chest x-ray. Electronically Signed by Sulaiman Mason MD 09/09/2018 09:05 A
[2018-09-09 09:27] LABS: ABG HCO3 28.8 MEQ/L (22.0-26.0); ABG O2 SATURATION 94.5 % (95.0-99.0); ABG PARTIAL PRESSURE CO2 48.3 mmHg (35.0-45.0); ABG PARTIAL PRESSURE O2 69.3 mmHg (75.0-100.0); ABG TOTAL CO2 30.3 MEQ/L (22.0-29.0); ABG pH (ARTERIAL) 7.394 UNITS (7.350-7.450)
[2018-09-09 09:34] LABS: BASO % 0.1 % (0.0-1.0); HEMATOCRIT 48.3 % (36.0-47.0); HEMOGLOBIN 15.9 g/dl (12.0-15.5); LYMPH % 7.7 % (24.0-44.0); MEAN CORPUSCULAR HEMOGLOBIN 30.9 pg (27.0-33.0); MEAN CORPUSCULAR HGB CONC 32.9 g/dl (32.0-36.5); MONO # 1.1 10^3/uL (0.0-0.8); MONO % 8.8 % (0.0-5.0); NEUTROPHILS # 10.5 10^3/uL (1.8-7.7); NEUTROPHILS % 82.8 % (36.0-66.0); PLATELET COUNT, AUTOMATED 223 10^3/uL (150-450); RED BLOOD COUNT 5.14 10^6/uL (4.00-5.40); WHITE BLOOD COUNT 12.7 10^3/uL (4.0-10.0)
[2018-09-09 10:06] LABS: ALBUMIN 3.5 GM/DL (3.2-5.2); ALT/SGPT 32 U/L (12-78); BILIRUBIN,DIRECT 0.1 MG/DL (0.0-0.2); BILIRUBIN,TOTAL 0.5 MG/DL (0.2-1.0); BLOOD UREA NITROGEN 14 MG/DL (7-18); CALCIUM LEVEL 9.4 MG/DL (8.5-10.1); CARBON DIOXIDE LEVEL 28 MEQ/L (21-32); CHLORIDE LEVEL 102 MEQ/L (98-107); CPK CREATINE PHOSPHOKINASE 75 U/L (26-192); CREATININE FOR GFR 0.63 MG/DL (0.55-1.30); GLOMERULAR FILTRATION RATE > 60.0 (>51); GLUCOSE, FASTING 102 MG/DL (70-100); NT-PRO BNP 742 PG/ML (<125); POTASSIUM SERUM 4.5 MEQ/L (3.5-5.1); SODIUM LEVEL 137 MEQ/L (136-145); THYROXINE (T4) 9.7 UG/DL (4.5-12.0); TOTAL PROTEIN 7.5 GM/DL (6.4-8.2); TROPONIN I < 0.02 NG/ML (< 0.10)
[2018-09-09 11:07] VITALS: O2SAT 94
--- NOTE | 2018-09-09 11:13 | REP ---
CT CHEST WITHOUT IV CONTRAST: CT chest performed without IV contrast. Sagittal and coronal reconstruction images are performed. Mild diffuse interstitial fibrotic change is seen. No acute infiltrate is seen. There is mild bronchiectasis bilaterally. There is mild peribronchial thickening diffusely bilaterally. A bulla is seen medially in the left lower lobe measuring about 3.6 cm in diameter. No consolidating infiltrate is seen. There is no pleural or pericardial fusion. The heart is normal in size. No mediastinal or axillary adenopathy is seen. There is mild atherosclerotic calcification of the thoracic aorta without aneurysm. Coronary artery calcifications are present. Anterior midline hernia in the upper abdominal wall was again seen containing fat. This is unchanged since the prior CT of 06/05/2018. Patient has had a prior cholecystectomy. There are degenerative changes of the spine without compression fracture. IMPRESSION: Mild diffuse interstitial fibrosis and bronchiectasis with mild peribronchial thickening. No infiltrate is seen. There is no pleural effusion. Stable upper abdominal wall hernia in the midline containing fat. Electronically Signed by César Choi MD 09/09/2018 03:20 P
[2018-09-09 11:22] VITALS: BP 157/71
--- NOTE | 2018-09-09 13:41 | ECGEPIP ---
Stationary ECG Study [facility] - ED Test Date: 2018-09-09 Pat Name: MADISON SMITH Department: Room: - Gender: F Paving Machine Operator: : [id number] Requested By: Stephanie Lerma Order Number: [id number] Reading MD: Minerva Jaquez Measurements Intervals [place] Rate: 66 P: 51 [place]: 121 QRS: 53 QRSD: 91 T: 30 QT: 373 QTc: 393 Interpretive Statements SINUS RHYTHM MODERATE ST DEPRESSION ST CHANGES MORE PRONOUNCED COMPARED 08/04/17 Electronically Signed On 09-09-2018 13:40:46 EDT by Minerva Jaquez
== END 2018-09-09 11:39 | disposition home or self-care (01) ==
LOC: M ED 08:20
DX: J44.1 Chronic obstructive pulmonary disease with (acute) exacerbation (principal); R94.31 Abnormal electrocardiogram [ECG] [EKG]; I25.10 Atherosclerotic heart disease of native coronary artery without angina pectoris; I25.2 Old myocardial infarction; I10 Essential (primary) hypertension; E78.70 Disorder of bile acid and cholesterol metabolism, unspecified; F17.200 Nicotine dependence, unspecified, uncomplicated; Z79.899 Other long term (current) drug therapy; Z79.82 Long term (current) use of aspirin; Z95.5 Presence of coronary angioplasty implant and graft; Z91.041 Radiographic dye allergy status
CPT/HCPCS: 36600; 71045; 71250; 80048; 80076; 82550; 82553; 82803; 83605; 83880; 84436; 84443; 85025; 87040; 87486; 87581; 87633; 87798; 93005; 93041; 94640; 96374; 99285; J2930

== ENCOUNTER → 2018-11-09 | Outpatient (CLI) | payer OTHER ==
--- NOTE | 2018-11-10 06:20 | PFTRPT ---
Height: 60.00 Inches Weight: 154.00 Lbs BSA: 1.67 Diagnosis: J40 DATE OF STUDY: 11/09/2018 ORDERED BY: Baldev Daniel Spirometry: Pre and post bronchodilator study of excellent technical quality. Forced vital capacity reduced. FEV1 in proportion. Obstructive index is, therefore, normal. Flow Volume Loop: Expiratory limb of the flow volume loop does suggest at least some degree of flow rate limitation. No bronchodilator response is identified. Lung Volumes: Total lung capacity normal. Residual volume does suggest significant air trapping. Diffusing Capacity: Diffusing capacity is severely reduced and does not correct for alveolar volume. Hemoglobin: No hemoglobin available for correction. Airway Mechanics: Airway resistance mildly elevated with a concomitant decrease in airway conductance. IMPRESSION: Underlying air trapping with diffusing capacity impairment. Please correlate clinically. MTDD
== END ==
LOC: M CARPUL 08:57
PROVIDERS: ATTEND Nurse Practitioner Family
DX: J40 Bronchitis, not specified as acute or chronic (principal)

== ENCOUNTER 2019-01-26 08:34 | Emergency (ER) | payer OTHER ==
[~2019-01-26] VITALS: Ht 152.4 cm; Wt 69.7 kg
[~2019-01-26 08:34] MED LIST changes: -MELA5TAB17 PO; +MELA5TAB31 PO
[2019-01-26] MEDS ORDERED: EZET10TA21 (08:43)
--- NOTE | 2019-01-26 09:33 | REP ---
Right wrist four views : There is no fracture or dislocation. Mineralization and joint spaces are normal. There are no calcifications or foreign bodies. Impression: Negative right wrist . Electronically Signed by César North MD 01/26/2019 09:25 A
[2019-01-26 10:00] VITALS: BP 149/67
[2019-01-26] MEDS ORDERED: ACETAMINOPHEN 500 MG TAB PO ONE (10:00)
== END 2019-01-26 10:07 | disposition home or self-care (01) ==
LOC: M ED 08:34
DX: G56.01 Carpal tunnel syndrome, right upper limb (principal); I48.91 Unspecified atrial fibrillation; I11.9 Hypertensive heart disease without heart failure; I25.2 Old myocardial infarction; J44.9 Chronic obstructive pulmonary disease, unspecified; E78.5 Hyperlipidemia, unspecified; Z86.718 Personal history of other venous thrombosis and embolism; Z95.5 Presence of coronary angioplasty implant and graft; F17.210 Nicotine dependence, cigarettes, uncomplicated; Z91.041 Radiographic dye allergy status; Z79.899 Other long term (current) drug therapy; Z79.51 Long term (current) use of inhaled steroids; Z79.82 Long term (current) use of aspirin

== ENCOUNTER → 2019-05-13 | Outpatient (CLI) | payer OTHER ==
[~2019-05-13] MED LIST changes: +EZET10TA21; -OMEP40CA2 PO; +OMEP40CA97 PO; -SIMV20TA2 PO; +SIMV20TA22 PO; -SIMV40TA2; -SIMV40TA2 PO; +SIMV40TA20; +SIMV40TA20 PO
[2019-05-13 15:04] LABS: BASO # 0.1 10^3/uL (0.0-0.2); BASO % 1.2 % (0.0-1.0); EOS # 0.3 10^3/uL (0.0-0.5); EOS % 2.9 % (0.0-3.0); HEMATOCRIT 43.9 % (36.0-47.0); HEMOGLOBIN 14.2 g/dl (12.0-15.5); LYMPH # 3.9 10^3/uL (1.5-5.0); LYMPH % 41.7 % (24.0-44.0); MEAN CORPUSCULAR HEMOGLOBIN 31.7 pg (27.0-33.0); MEAN CORPUSCULAR HGB CONC 32.3 g/dl (32.0-36.5); MONO # 0.9 10^3/uL (0.0-0.8); NEUTROPHILS # 4.1 10^3/uL (1.5-8.5); PLATELET COUNT, AUTOMATED 206 10^3/uL (150-450); RED BLOOD COUNT 4.48 10^6/uL (4.00-5.40); WHITE BLOOD COUNT 9.4 10^3/uL (4.0-10.0)
[2019-05-13 15:21] LABS: HEMOGLOBIN A1c 6.6 %
[2019-05-13 15:37] LABS: ALBUMIN 3.3 GM/DL (3.2-5.2); ALT/SGPT 20 U/L (12-78); BILIRUBIN,TOTAL 0.4 MG/DL (0.2-1.0); BLOOD UREA NITROGEN 11 MG/DL (7-18); CALCIUM LEVEL 8.7 MG/DL (8.5-10.1); CARBON DIOXIDE LEVEL 27 MEQ/L (21-32); CHLORIDE LEVEL 106 MEQ/L (98-107); CHOLESTEROL LEVEL 117 MG/DL (<200); CHOLESTEROL RISK RATIO 2.659 (<5); CREATININE FOR GFR 0.68 MG/DL (0.55-1.30); GLOMERULAR FILTRATION RATE > 60.0 (>51); GLUCOSE, FASTING 131 MG/DL (70-100); HDL CHOLESTEROL 44 MG/DL (>40); LDL CHOLESTEROL 36 MG/DL (<100); NON-HDL-C 73 MG/DL; POTASSIUM SERUM 4.4 MEQ/L (3.5-5.1); SODIUM LEVEL 139 MEQ/L (136-145); TOTAL PROTEIN 6.9 GM/DL (6.4-8.2); TRIGLYCERIDES LEVEL 187 MG/DL (<150)
[2019-05-13 15:40] LABS: TOTAL 25(OH) VITAMIN D 11.5 NG/ML (30.0-100.0)
== END ==
LOC: M WUC 12:15
PROVIDERS: ATTEND Nurse Practitioner Family
DX: Z00.01 Encounter for general adult medical examination with abnormal findings (principal)

== ENCOUNTER → 2019-09-20 | Outpatient (CLI) | payer MEDICAID ==
[2019-09-20 14:28] LABS: HEMATOCRIT 45.6 % (36.0-47.0); HEMOGLOBIN 14.6 g/dl (12.0-15.5); MEAN CORPUSCULAR HEMOGLOBIN 30.7 pg (27.0-33.0); PLATELET COUNT, AUTOMATED 210 10^3/uL (150-450); RED BLOOD COUNT 4.75 10^6/uL (4.00-5.40); WHITE BLOOD COUNT 6.9 10^3/uL (4.0-10.0)
[2019-09-20 14:51] LABS: ALBUMIN 3.3 GM/DL (3.2-5.2); ALT/SGPT 21 U/L (12-78); BILIRUBIN,TOTAL 0.6 MG/DL (0.2-1.0); BLOOD UREA NITROGEN 11 MG/DL (7-18); CALCIUM LEVEL 9.1 MG/DL (8.5-10.1); CARBON DIOXIDE LEVEL 26 MEQ/L (21-32); CHLORIDE LEVEL 106 MEQ/L (98-107); CHOLESTEROL LEVEL 154 MG/DL (<200); CHOLESTEROL RISK RATIO 3.948 (<5); CREATININE FOR GFR 0.64 MG/DL (0.55-1.30); FREE T4 1.13 NG/DL (0.76-1.46); GLOMERULAR FILTRATION RATE > 60.0 (>51); GLUCOSE, FASTING 94 MG/DL (70-100); HDL CHOLESTEROL 39 MG/DL (>40); LDL CHOLESTEROL 96 MG/DL (<100); NON-HDL-C 115 MG/DL; POTASSIUM SERUM 4.5 MEQ/L (3.5-5.1); SODIUM LEVEL 138 MEQ/L (136-145); TOTAL 25(OH) VITAMIN D 9.5 NG/ML (30.0-100.0); TOTAL PROTEIN 7.2 GM/DL (6.4-8.2); TRIGLYCERIDES LEVEL 97 MG/DL (<150)
[2019-09-20 15:58] LABS: ATYPICAL LYMPH 7 % (0-5); BASOPHILS 3 % (0-1); EOSINOPHILS 3 % (0-3); LYMPHOCYTES 42 % (16-44); MONOCYTES 3 % (0-5); NEUTROPHILS 42 % (28-66)
[2019-09-20 15:59] LABS: PLATELET ESTIMATE NORMAL (NORMAL)
[2019-09-20 16:02] LABS: HEMOGLOBIN A1c 6.2 %
== END ==
LOC: M WUC 09:36
PROVIDERS: ATTEND Nurse Practitioner Family
DX: E78.5 Hyperlipidemia, unspecified (principal); I10 Essential (primary) hypertension; Z98.61 Coronary angioplasty status; R06.09 Other forms of dyspnea

== ENCOUNTER → 2020-01-11 | Outpatient (REF) | payer OTHER ==
[~2020-01-11] MED LIST changes: -ASPI81TA85 PO; +ASPI81TA86 PO; -MELA5TAB31 PO; +MELA5TAB36 PO
[2020-02-21 08:19] LABS: A1A FOR PHENOTYPE SEE SEPARATE REPORT MG/DL; ALPHA-1-ANTITRYPSIN PHENOTYPE See Separate Report
== END ==
LOC: M LAB REF 07:10
PROVIDERS: ATTEND Physician Assistant
DX: J44.9 Chronic obstructive pulmonary disease, unspecified (principal)

== ENCOUNTER → 2020-01-27 | Outpatient (CLI) | payer OTHER ==
--- NOTE | 2020-01-27 16:13 | REPVR ---
PROCEDURE INFORMATION: Exam: CT Head Without Contrast Exam date and time: 01/27/2020 3:50 PM Age: 59 years old Clinical indication: Other: TIA TECHNIQUE: Imaging protocol: Computed tomography of the head without contrast. Radiation optimization: All CT scans at this facility use at least one of these dose optimization techniques: automated exposure control; mA and/or kV adjustment per patient size (includes targeted exams where dose is matched to clinical indication); or iterative reconstruction. COMPARISON: No relevant prior studies available. FINDINGS: Brain: No hemorrhage. Unremarkable white matter for the patient's age. No mass effect. No evolving territorial infarct. Ventricles: No significant ventriculomegaly. Bones/joints: Unremarkable. No acute fracture. Sinuses: Visualized sinuses are unremarkable. No fluid levels. Mastoid air cells: Visualized mastoid air cells are well aerated. Soft tissues: Unremarkable. IMPRESSION: No acute intracranial abnormality seen. Electronically signed by: Edie Argueta On 01/27/2020 16:13:39 PM
== END ==
LOC: M RAD 15:38
PROVIDERS: ATTEND Nurse Practitioner Family
DX: G45.9 Transient cerebral ischemic attack, unspecified (principal)

== ENCOUNTER → 2020-02-03 | Outpatient (CLI) | payer OTHER ==
[2020-02-03 12:55] LABS: BASO # 0.1 10^3/uL (0.0-0.2); BASO % 0.7 % (0.0-1.0); EOS # 0.2 10^3/uL (0.0-0.5); EOS % 2.3 % (0.0-3.0); HEMATOCRIT 43.9 % (36.0-47.0); HEMOGLOBIN 14.3 g/dl (12.0-15.5); LYMPH # 3.4 10^3/uL (1.5-5.0); LYMPH % 35.4 % (24.0-44.0); MEAN CORPUSCULAR HEMOGLOBIN 31.5 pg (27.0-33.0); MEAN CORPUSCULAR HGB CONC 32.6 g/dl (32.0-36.5); MEAN CORPUSCULAR VOLUME 96.7 fl (80.0-96.0); MONO # 0.9 10^3/uL (0.0-0.8); MONO % 9.1 % (0.0-5.0); NEUTROPHILS # 4.9 10^3/uL (1.5-8.5); NEUTROPHILS % 52.2 % (36.0-66.0); PLATELET COUNT, AUTOMATED 230 10^3/uL (150-450); RED BLOOD COUNT 4.54 10^6/uL (4.00-5.40); WHITE BLOOD COUNT 9.5 10^3/uL (4.0-10.0)
[2020-02-03 13:07] LABS: ALBUMIN 3.4 GM/DL (3.2-5.2); ALT/SGPT 17 U/L (12-78); BILIRUBIN,TOTAL 0.5 MG/DL (0.2-1.0); BLOOD UREA NITROGEN 14 MG/DL (7-18); CALCIUM LEVEL 9.1 MG/DL (8.5-10.1); CARBON DIOXIDE LEVEL 28 MEQ/L (21-32); CHLORIDE LEVEL 104 MEQ/L (98-107); CHOLESTEROL LEVEL 209 MG/DL (<200); CHOLESTEROL RISK RATIO 4.354 (<5); CREATININE FOR GFR 0.68 MG/DL (0.55-1.30); GLOMERULAR FILTRATION RATE > 60.0 (>51); GLUCOSE, FASTING 93 MG/DL (70-100); HDL CHOLESTEROL 48 MG/DL (>40); LDL CHOLESTEROL 140 MG/DL (<100); NON-HDL-C 161 MG/DL; POTASSIUM SERUM 4.4 MEQ/L (3.5-5.1); SODIUM LEVEL 139 MEQ/L (136-145); TOTAL PROTEIN 7.3 GM/DL (6.4-8.2); TRIGLYCERIDES LEVEL 103 MG/DL (<150)
[2020-02-03 13:21] LABS: TOTAL 25(OH) VITAMIN D 52.9 NG/ML (30.0-100.0)
[2020-02-03 16:19] LABS: HEMOGLOBIN A1c 5.9 %
== END ==
LOC: M WUC 08:03
PROVIDERS: ATTEND Nurse Practitioner Family
DX: E55.9 Vitamin D deficiency, unspecified (principal); R73.03 Prediabetes; I10 Essential (primary) hypertension; F17.200 Nicotine dependence, unspecified, uncomplicated; J44.9 Chronic obstructive pulmonary disease, unspecified; R06.09 Other forms of dyspnea; Z98.61 Coronary angioplasty status

== ENCOUNTER → 2020-08-03 | Outpatient (REF) | payer OTHER ==
[~2020-08-03] MED LIST changes: -LISI-542 PO; +LISI-898 PO
[2020-08-03 12:05] LABS: BASO # 0.1 10^3/uL (0.0-0.2); BASO % 0.9 % (0.0-1.0); EOS # 0.2 10^3/uL (0.0-0.5); EOS % 1.9 % (0.0-3.0); HEMATOCRIT 46.8 % (36.0-47.0); HEMOGLOBIN 14.7 g/dl (12.0-15.5); LYMPH # 2.6 10^3/uL (1.5-5.0); LYMPH % 30.4 % (24.0-44.0); MEAN CORPUSCULAR HEMOGLOBIN 30.8 pg (27.0-33.0); MEAN CORPUSCULAR HGB CONC 31.4 g/dl (32.0-36.5); MEAN CORPUSCULAR VOLUME 97.9 fl (80.0-96.0); MONO # 0.6 10^3/uL (0.0-0.8); MONO % 7.3 % (2.0-8.0); NEUTROPHILS # 5.1 10^3/uL (1.5-8.5); NEUTROPHILS % 59.3 % (36.0-66.0); PLATELET COUNT, AUTOMATED 222 10^3/uL (150-450); RED BLOOD COUNT 4.78 10^6/uL (4.00-5.40); WHITE BLOOD COUNT 8.6 10^3/uL (4.0-10.0)
[2020-08-03 13:05] LABS: ALBUMIN 3.5 GM/DL (3.2-5.2); ALT/SGPT 19 U/L (12-78); BILIRUBIN,TOTAL 0.5 MG/DL (0.2-1.0); BLOOD UREA NITROGEN 15 MG/DL (7-18); CALCIUM LEVEL 9.4 MG/DL (8.8-10.2); CARBON DIOXIDE LEVEL 29 MEQ/L (21-32); CHLORIDE LEVEL 104 MEQ/L (98-107); CHOLESTEROL LEVEL 220 MG/DL (<200); CHOLESTEROL RISK RATIO 4.583 (<5); CREATININE FOR GFR 0.71 MG/DL (0.55-1.30); FREE T4 1.31 NG/DL (0.76-1.46); GLOMERULAR FILTRATION RATE > 60.0 (>45); GLUCOSE, FASTING 118 MG/DL (70-100); HDL CHOLESTEROL 48 MG/DL (>40); LDL CHOLESTEROL 151 MG/DL (<100); NON-HDL-C 172 MG/DL; POTASSIUM SERUM 4.2 MEQ/L (3.5-5.1); SODIUM LEVEL 138 MEQ/L (136-145); TOTAL PROTEIN 7.1 GM/DL (6.4-8.2); TRIGLYCERIDES LEVEL 103 MG/DL (<150)
[2020-08-03 13:41] LABS: TOTAL 25(OH) VITAMIN D 37.8 NG/ML (30.0-100.0)
== END ==
LOC: M LAB REF 11:35
PROVIDERS: ATTEND Nurse Practitioner Family
DX: E78.5 Hyperlipidemia, unspecified (principal); I10 Essential (primary) hypertension

== ENCOUNTER 2020-12-06 06:41 | Inpatient (IN) | payer OTHER ==
[~2020-12-06] VITALS: Ht 152.4 cm; Wt 72.5 kg
[~2020-12-06 06:41] MED LIST changes: -LISI-898 PO; +LISI5TAB11 PO; +OMEP40CA4 PO; -OMEP40CA97 PO
[2020-12-06 07:06] LABS: BASO # 0.1 10^3/uL (0.0-0.2); BASO % 1.4 % (0.0-1.0); EOS % 0.8 % (0.0-3.0); HEMATOCRIT 46.3 % (36.0-47.0); HEMOGLOBIN 15.2 g/dl (12.0-15.5); LYMPH # 0.9 10^3/uL (1.5-5.0); LYMPH % 17.4 % (24.0-44.0); MEAN CORPUSCULAR HEMOGLOBIN 30.6 pg (27.0-33.0); MEAN CORPUSCULAR HGB CONC 32.8 g/dl (32.0-36.5); MEAN CORPUSCULAR VOLUME 93.2 fl (80.0-96.0); MONO # 0.8 10^3/uL (0.0-0.8); MONO % 14.5 % (2.0-8.0); NEUTROPHILS # 3.4 10^3/uL (1.5-8.5); NEUTROPHILS % 65.5 % (36.0-66.0); PLATELET COUNT, AUTOMATED 206 10^3/uL (150-450); RED BLOOD COUNT 4.97 10^6/uL (4.00-5.40); WHITE BLOOD COUNT 5.2 10^3/uL (4.0-10.0)
[2020-12-06] MEDS ORDERED: IPRATROPIUM 0.5MG/ALBUTEROL 2.5MG INH SOL UD 3ML (DUONEB) NEB ONE ×3 (07:40→12:30)
[2020-12-06 07:42] LABS: ALBUMIN 3.4 GM/DL (3.2-5.2); ALT/SGPT 20 U/L (12-78); BILIRUBIN,DIRECT 0.2 MG/DL (0.0-0.2); BILIRUBIN,TOTAL 0.7 MG/DL (0.2-1.0); BLOOD UREA NITROGEN 9 MG/DL (7-18); CALCIUM LEVEL 8.4 MG/DL (8.8-10.2); CARBON DIOXIDE LEVEL 24 MEQ/L (21-32); CHLORIDE LEVEL 103 MEQ/L (98-107); CK-MB VALUE MASS < 1.0 NG/ML (<3.6); CPK CREATINE PHOSPHOKINASE 41 U/L (26-192); CREATININE FOR GFR 0.63 MG/DL (0.55-1.30); GLOMERULAR FILTRATION RATE > 60.0 (>45); GLUCOSE, FASTING 116 MG/DL (70-100); MB/CK RELATIVE INDEX 2.44 (< OR =4); NT-PRO BNP 798 PG/ML (<125); POTASSIUM SERUM 4.1 MEQ/L (3.5-5.1); SODIUM LEVEL 134 MEQ/L (136-145); TOTAL PROTEIN 7.1 GM/DL (6.4-8.2); TROPONIN I < 0.02 NG/ML (< 0.10)
[2020-12-06] MEDS ORDERED: COMBIVENT RESPIMAT 100-20MCG INHALER 4GM INH ONE (07:45)
[2020-12-06] MEDS ORDERED: MOM 30ML SUSPENSION UDC PO PRN (14:05)
[2020-12-06] MEDS ORDERED: ACETAMINOPHEN TAB 650MG DOSE (2X325MG) PO PRN (14:05)
[2020-12-06] MEDS ORDERED: MAALOX 30 ML SUSP *UDC PO PRN (14:05)
[2020-12-06] MEDS ORDERED: ALBU8.5H INH (14:30)
[2020-12-06] MEDS ORDERED: D31000TA2 PO (14:30)
[2020-12-06] MEDS ORDERED: LISI10TA22 PO (14:30)
[2020-12-06] MEDS ORDERED: HOME MED LIST COMPLETE! XX SCH (14:30)
[2020-12-06] MEDS ORDERED: FLUT1BLS5 INH (14:30)
[2020-12-06] MEDS ORDERED: EZET10TA21 PO (14:30)
[2020-12-06] MEDS ORDERED: SIMV20TA22 PO (14:30)
[2020-12-06] MEDS ORDERED: ASPI-161 PO (14:30)
[2020-12-06] MEDS ORDERED: methylPREDNISolone 125MG 2ML VIAL IV ONE ×2 (15:00→19:00)
[2020-12-06] MEDS: IPRATROPIUM 0.5MG/ALBUTEROL 2.5MG INH SOL UD 3ML (DUONEB) NEB SCH ×2 (17:25→20:00)
[2020-12-06] MEDS ORDERED: diphenhydrAMINE 50MG/ML VIAL (J1200) IV ONE (19:00)
[2020-12-06] MEDS ORDERED: ISOVUE-370 76% 100ML VIAL As Ordered ONE (20:02)
[2020-12-06] MEDS: SYMBICORT 80/4.5MCG INHALER 6GM INH SCH (20:44)
[2020-12-06 22:05] VITALS: BP 176/72
[2020-12-06] MEDS: DOCUSATE SODIUM 100MG CAPSULE PO SCH (22:27)
[2020-12-07] VITALS: BP 149/66
[2020-12-07] MEDS: IPRATROPIUM 0.5MG/ALBUTEROL 2.5MG INH SOL UD 3ML (DUONEB) NEB SCH ×6 (01:05→20:00)
[2020-12-07 04:00] VITALS: BP 144/88
[2020-12-07] MEDS: SYMBICORT 80/4.5MCG INHALER 6GM INH SCH ×2 (07:54→20:22)
[2020-12-07 08:00] VITALS: BP 140/60
[2020-12-07 08:30] LABS: BASO % 0.1 % (0.0-1.0); HEMATOCRIT 46.4 % (36.0-47.0); HEMOGLOBIN 15.4 g/dl (12.0-15.5); LYMPH # 0.8 10^3/uL (1.5-5.0); LYMPH % 5.2 % (24.0-44.0); MEAN CORPUSCULAR HEMOGLOBIN 30.9 pg (27.0-33.0); MEAN CORPUSCULAR HGB CONC 33.2 g/dl (32.0-36.5); MEAN CORPUSCULAR VOLUME 93.2 fl (80.0-96.0); MONO # 0.8 10^3/uL (0.0-0.8); MONO % 5.3 % (2.0-8.0); NEUTROPHILS % 88.9 % (36.0-66.0); PLATELET COUNT, AUTOMATED 213 10^3/uL (150-450); RED BLOOD COUNT 4.98 10^6/uL (4.00-5.40); WHITE BLOOD COUNT 15.8 10^3/uL (4.0-10.0)
[2020-12-07] MEDS: DOCUSATE SODIUM 100MG CAPSULE PO SCH ×2 (08:30→20:26)
[2020-12-07] MEDS: LevoFLOXacin 750 MG TABLET PO SCH (08:38)
[2020-12-07 08:56] LABS: ERYTHROCYTE SEDIMENTATION RATE 44 mm/hr (0-30)
[2020-12-07] MEDS ORDERED: AZITHROMYCIN 250MG TABLET PO SCH (09:00)
[2020-12-07 09:06] LABS: ALBUMIN 3.4 GM/DL (3.2-5.2); ALT/SGPT 21 U/L (12-78); BILIRUBIN,TOTAL 0.5 MG/DL (0.2-1.0); BLOOD UREA NITROGEN 16 MG/DL (7-18); CALCIUM LEVEL 9.4 MG/DL (8.8-10.2); CARBON DIOXIDE LEVEL 24 MEQ/L (21-32); CHLORIDE LEVEL 104 MEQ/L (98-107); GLOMERULAR FILTRATION RATE > 60.0 (>45); GLUCOSE, FASTING 205 MG/DL (70-100); MAGNESIUM LEVEL 2.2 MG/DL (1.8-2.4); POTASSIUM SERUM 4.3 MEQ/L (3.5-5.1); SODIUM LEVEL 136 MEQ/L (136-145); TOTAL PROTEIN 7.5 GM/DL (6.4-8.2)
[2020-12-07] MEDS ORDERED: NITROGLYCERIN 0.4 MG SUBL TABLET SL PRN (09:15)
[2020-12-07 10:39] LABS: TROPONIN I < 0.02 NG/ML (< 0.10)
[2020-12-07] MEDS: CARVedilol 12.5 MG TAB PO SCH ×2 (10:48→20:27)
[2020-12-07] MEDS: EZETIMIBE 10MG TABLET (ZETIA) PO SCH (10:49)
[2020-12-07] MEDS: OMEPRAZOLE 20MG CAP PO SCH (10:49)
[2020-12-07] MEDS: methylPREDNISolone 40MG 1ML VIAL IV SCH ×2 (10:50→18:08)
[2020-12-07] MEDS: ASPIRIN 81MG ENTERIC TABLET PO SCH (10:50)
[2020-12-07] MEDS: SIMVASTATIN 20 MG TAB PO SCH (10:50)
[2020-12-07 12:00] VITALS: BP 164/56
[2020-12-07] MEDS: TIOTROPIUM INHALER/CAPSULE (SPIRIVA) INH SCH (14:22)
[2020-12-07] MEDS ORDERED: IPRATROPIUM 0.5MG/ALBUTEROL 2.5MG INH SOL UD 3ML (DUONEB) NEB PRN (14:35)
[2020-12-07 16:00] VITALS: BP 118/50
[2020-12-07] MEDS: IPRATROPIUM 0.5MG/ALBUTEROL 2.5MG INH SOL UD 3ML (DUONEB) NEB PRN ×2 (17:08→22:16)
[2020-12-07 20:00] VITALS: BP 159/63
[2020-12-08] VITALS: BP 153/69
[2020-12-08] MEDS: IPRATROPIUM 0.5MG/ALBUTEROL 2.5MG INH SOL UD 3ML (DUONEB) NEB SCH ×7 (00:10→23:58)
[2020-12-08] MEDS: methylPREDNISolone 40MG 1ML VIAL IV SCH ×3 (01:16→17:06)
[2020-12-08 04:00] VITALS: BP 124/55
[2020-12-08 05:06] LABS: BASO % 0.1 % (0.0-1.0); HEMATOCRIT 44.9 % (36.0-47.0); HEMOGLOBIN 14.6 g/dl (12.0-15.5); LYMPH # 0.7 10^3/uL (1.5-5.0); LYMPH % 3.5 % (24.0-44.0); MEAN CORPUSCULAR HEMOGLOBIN 30.9 pg (27.0-33.0); MEAN CORPUSCULAR HGB CONC 32.5 g/dl (32.0-36.5); MEAN CORPUSCULAR VOLUME 94.9 fl (80.0-96.0); MONO # 0.4 10^3/uL (0.0-0.8); MONO % 1.9 % (2.0-8.0); PLATELET COUNT, AUTOMATED 243 10^3/uL (150-450); RED BLOOD COUNT 4.73 10^6/uL (4.00-5.40); WHITE BLOOD COUNT 19.1 10^3/uL (4.0-10.0)
[2020-12-08] MEDS: LevoFLOXacin 750 MG TABLET PO SCH (05:24)
[2020-12-08 05:30] LABS: BLOOD UREA NITROGEN 21 MG/DL (7-18); CALCIUM LEVEL 9.5 MG/DL (8.8-10.2); CARBON DIOXIDE LEVEL 25 MEQ/L (21-32); CHLORIDE LEVEL 105 MEQ/L (98-107); CREATININE FOR GFR 0.78 MG/DL (0.55-1.30); GLOMERULAR FILTRATION RATE > 60.0 (>45); GLUCOSE, FASTING 158 MG/DL (70-100); MAGNESIUM LEVEL 2.3 MG/DL (1.8-2.4); SODIUM LEVEL 138 MEQ/L (136-145)
[2020-12-08] MEDS: SYMBICORT 80/4.5MCG INHALER 6GM INH SCH ×2 (07:13→20:10)
[2020-12-08] MEDS: TIOTROPIUM INHALER/CAPSULE (SPIRIVA) INH SCH (07:13)
[2020-12-08] MEDS: CARVedilol 12.5 MG TAB PO SCH ×2 (09:16→21:47)
[2020-12-08] MEDS: ASPIRIN 81MG ENTERIC TABLET PO SCH (09:16)
[2020-12-08] MEDS: OMEPRAZOLE 20MG CAP PO SCH (09:17)
[2020-12-08] MEDS: DOCUSATE SODIUM 100MG CAPSULE PO SCH ×2 (09:17→21:47)
[2020-12-08] MEDS: EZETIMIBE 10MG TABLET (ZETIA) PO SCH (09:18)
[2020-12-08] MEDS: SIMVASTATIN 20 MG TAB PO SCH (09:18)
[2020-12-08 10:24] LABS: C REACTIVE PROTEIN QUANTITATIV 3.36 MG/DL (0.00-0.30)
[2020-12-08] MEDS: SODIUM CHLORIDE NASAL 0.65% SPRAY BTL (OCEAN) SCH ×3 (11:43→21:48)
[2020-12-08] MEDS: guaiFENesin ER 600 MG TAB PO SCH ×2 (11:44→21:47)
[2020-12-08] MEDS: FLUTICASONE PROP 0.05% NASAL SPRAY 16 GM (FLONASE) NARES SCH ×2 (11:44→21:48)
[2020-12-08 11:46] VITALS: BP 146/67
[2020-12-08 16:00] VITALS: BP 155/87
[2020-12-08 20:00] VITALS: BP 165/68
[2020-12-09] VITALS (7 sets, daily range): BP systolic 138–176; BP diastolic 61–72
[2020-12-09] MEDS: methylPREDNISolone 40MG 1ML VIAL IV SCH ×2 (03:25→10:21)
[2020-12-09] MEDS: IPRATROPIUM 0.5MG/ALBUTEROL 2.5MG INH SOL UD 3ML (DUONEB) NEB SCH ×5 (03:28→19:07)
[2020-12-09 05:55] LABS: BASO % 0.1 % (0.0-1.0); EOS % 0.1 % (0.0-3.0); HEMATOCRIT 45.1 % (36.0-47.0); HEMOGLOBIN 14.4 g/dl (12.0-15.5); LYMPH # 0.8 10^3/uL (1.5-5.0); LYMPH % 5.1 % (24.0-44.0); MEAN CORPUSCULAR HEMOGLOBIN 30.8 pg (27.0-33.0); MEAN CORPUSCULAR HGB CONC 31.9 g/dl (32.0-36.5); MEAN CORPUSCULAR VOLUME 96.4 fl (80.0-96.0); MONO # 0.7 10^3/uL (0.0-0.8); MONO % 4.3 % (2.0-8.0); NEUTROPHILS # 13.4 10^3/uL (1.5-8.5); NEUTROPHILS % 89.5 % (36.0-66.0); PLATELET COUNT, AUTOMATED 229 10^3/uL (150-450); RED BLOOD COUNT 4.68 10^6/uL (4.00-5.40)
[2020-12-09] MEDS: LevoFLOXacin 750 MG TABLET PO SCH (06:17)
[2020-12-09 06:24] LABS: BLOOD UREA NITROGEN 21 MG/DL (7-18); CALCIUM LEVEL 8.7 MG/DL (8.8-10.2); CARBON DIOXIDE LEVEL 29 MEQ/L (21-32); CHLORIDE LEVEL 103 MEQ/L (98-107); CREATININE FOR GFR 0.66 MG/DL (0.55-1.30); GLOMERULAR FILTRATION RATE > 60.0 (>45); GLUCOSE, FASTING 160 MG/DL (70-100); MAGNESIUM LEVEL 2.4 MG/DL (1.8-2.4); POTASSIUM SERUM 5.1 MEQ/L (3.5-5.1); SODIUM LEVEL 135 MEQ/L (136-145)
[2020-12-09] MEDS: SYMBICORT 80/4.5MCG INHALER 6GM INH SCH ×2 (07:38→19:07)
[2020-12-09] MEDS: TIOTROPIUM INHALER/CAPSULE (SPIRIVA) INH SCH (07:38)
[2020-12-09] MEDS: ASPIRIN 81MG ENTERIC TABLET PO SCH (08:03)
[2020-12-09] MEDS: CARVedilol 12.5 MG TAB PO SCH ×2 (08:04→20:39)
[2020-12-09] MEDS: EZETIMIBE 10MG TABLET (ZETIA) PO SCH (08:05)
[2020-12-09] MEDS: OMEPRAZOLE 20MG CAP PO SCH (08:05)
[2020-12-09] MEDS: SIMVASTATIN 20 MG TAB PO SCH (08:06)
[2020-12-09] MEDS: guaiFENesin ER 600 MG TAB PO SCH ×2 (08:06→20:38)
[2020-12-09] MEDS: DOCUSATE SODIUM 100MG CAPSULE PO SCH ×2 (08:06→20:38)
[2020-12-09] MEDS: SODIUM CHLORIDE NASAL 0.65% SPRAY BTL (OCEAN) SCH ×3 (08:07→20:39)
[2020-12-09] MEDS: FLUTICASONE PROP 0.05% NASAL SPRAY 16 GM (FLONASE) NARES SCH ×2 (08:07→20:41)
[2020-12-09] MEDS: FUROSEMIDE 40MG/4ML VIAL (J1940) IV SCH ×2 (11:45→18:20)
[2020-12-10] MEDS: IPRATROPIUM 0.5MG/ALBUTEROL 2.5MG INH SOL UD 3ML (DUONEB) NEB SCH ×7 (00:39→23:17)
[2020-12-10] MEDS: FUROSEMIDE 40MG/4ML VIAL (J1940) IV SCH ×3 (02:33→18:34)
[2020-12-10] MEDS: LevoFLOXacin 750 MG TABLET PO SCH (05:27)
[2020-12-10 06:07] LABS: BASO % 0.2 % (0.0-1.0); HEMATOCRIT 46.7 % (36.0-47.0); HEMOGLOBIN 15.4 g/dl (12.0-15.5); LYMPH # 2.1 10^3/uL (1.5-5.0); LYMPH % 17.1 % (24.0-44.0); MEAN CORPUSCULAR HEMOGLOBIN 30.6 pg (27.0-33.0); MEAN CORPUSCULAR VOLUME 92.8 fl (80.0-96.0); MONO % 8.2 % (2.0-8.0); NEUTROPHILS # 9.1 10^3/uL (1.5-8.5); NEUTROPHILS % 73.9 % (36.0-66.0); PLATELET COUNT, AUTOMATED 232 10^3/uL (150-450); RED BLOOD COUNT 5.03 10^6/uL (4.00-5.40); WHITE BLOOD COUNT 12.3 10^3/uL (4.0-10.0)
[2020-12-10 06:30] LABS: BLOOD UREA NITROGEN 24 MG/DL (7-18); CALCIUM LEVEL 9.2 MG/DL (8.8-10.2); CARBON DIOXIDE LEVEL 35 MEQ/L (21-32); CHLORIDE LEVEL 96 MEQ/L (98-107); CREATININE FOR GFR 0.79 MG/DL (0.55-1.30); GLOMERULAR FILTRATION RATE > 60.0 (>45); GLUCOSE, FASTING 115 MG/DL (70-100); MAGNESIUM LEVEL 2.2 MG/DL (1.8-2.4); POTASSIUM SERUM 3.7 MEQ/L (3.5-5.1); SODIUM LEVEL 138 MEQ/L (136-145)
[2020-12-10] MEDS: SYMBICORT 80/4.5MCG INHALER 6GM INH SCH ×2 (07:09→19:16)
[2020-12-10] MEDS: TIOTROPIUM INHALER/CAPSULE (SPIRIVA) INH SCH (07:09)
[2020-12-10 07:23] VITALS: BP 131/75
[2020-12-10] MEDS: DOCUSATE SODIUM 100MG CAPSULE PO SCH ×2 (09:00→21:25)
[2020-12-10] MEDS: ASPIRIN 81MG ENTERIC TABLET PO SCH (09:27)
[2020-12-10] MEDS: predniSONE 20 MG TAB PO SCH (09:27)
[2020-12-10] MEDS: OMEPRAZOLE 20MG CAP PO SCH (09:27)
[2020-12-10] MEDS: guaiFENesin ER 600 MG TAB PO SCH ×2 (09:28→21:25)
[2020-12-10] MEDS: EZETIMIBE 10MG TABLET (ZETIA) PO SCH (09:28)
[2020-12-10] MEDS: CARVedilol 12.5 MG TAB PO SCH ×2 (09:29→21:25)
[2020-12-10] MEDS: SIMVASTATIN 20 MG TAB PO SCH (09:29)
[2020-12-10] MEDS: FLUTICASONE PROP 0.05% NASAL SPRAY 16 GM (FLONASE) NARES SCH ×2 (09:30→21:26)
[2020-12-10] MEDS: SODIUM CHLORIDE NASAL 0.65% SPRAY BTL (OCEAN) SCH ×3 (09:30→21:26)
[2020-12-10 11:33] VITALS: BP 126/56
[2020-12-10 15:20] VITALS: BP 112/54
[2020-12-10] MEDS: IPRATROPIUM 0.5MG/ALBUTEROL 2.5MG INH SOL UD 3ML (DUONEB) NEB PRN (16:58)
[2020-12-10 18:34] VITALS: BP 133/59
[2020-12-10 20:00] VITALS: BP 122/58
[2020-12-10 21:43] VITALS: BP 173/66
[2020-12-11] MEDS: IPRATROPIUM 0.5MG/ALBUTEROL 2.5MG INH SOL UD 3ML (DUONEB) NEB SCH ×3 (03:17→11:08)
[2020-12-11] MEDS: FUROSEMIDE 40MG/4ML VIAL (J1940) IV SCH (03:57)
[2020-12-11] MEDS: LevoFLOXacin 750 MG TABLET PO SCH (05:28)
[2020-12-11 06:00] VITALS: BP 115/56
[2020-12-11 06:39] LABS: HEMATOCRIT 49.4 % (36.0-47.0); HEMOGLOBIN 16.2 g/dl (12.0-15.5); MEAN CORPUSCULAR HEMOGLOBIN 30.4 pg (27.0-33.0); MEAN CORPUSCULAR HGB CONC 32.8 g/dl (32.0-36.5); MEAN CORPUSCULAR VOLUME 92.7 fl (80.0-96.0); PLATELET COUNT, AUTOMATED 254 10^3/uL (150-450); RED BLOOD COUNT 5.33 10^6/uL (4.00-5.40); WHITE BLOOD COUNT 11.1 10^3/uL (4.0-10.0)
[2020-12-11 07:03] LABS: BLOOD UREA NITROGEN 28 MG/DL (7-18); CALCIUM LEVEL 8.9 MG/DL (8.8-10.2); CARBON DIOXIDE LEVEL 36 MEQ/L (21-32); CHLORIDE LEVEL 95 MEQ/L (98-107); CREATININE FOR GFR 0.88 MG/DL (0.55-1.30); GLOMERULAR FILTRATION RATE > 60.0 (>45); GLUCOSE, FASTING 103 MG/DL (70-100); MAGNESIUM LEVEL 2.4 MG/DL (1.8-2.4); POTASSIUM SERUM 3.6 MEQ/L (3.5-5.1); SODIUM LEVEL 136 MEQ/L (136-145)
[2020-12-11 07:21] LABS: ATYPICAL LYMPH 4 % (0-5); LYMPHOCYTES 29 % (16-44); MONOCYTES 7 % (0-5); NEUTROPHILS 59 % (28-66); PLATELET ESTIMATE NORMAL (NORMAL)
[2020-12-11] MEDS: SYMBICORT 80/4.5MCG INHALER 6GM INH SCH (07:32)
[2020-12-11] MEDS: TIOTROPIUM INHALER/CAPSULE (SPIRIVA) INH SCH (07:32)
[2020-12-11] MEDS: DOCUSATE SODIUM 100MG CAPSULE PO SCH (08:32)
[2020-12-11] MEDS: guaiFENesin ER 600 MG TAB PO SCH (08:32)
[2020-12-11] MEDS: OMEPRAZOLE 20MG CAP PO SCH (08:32)
[2020-12-11] MEDS: SIMVASTATIN 20 MG TAB PO SCH (08:33)
[2020-12-11] MEDS: EZETIMIBE 10MG TABLET (ZETIA) PO SCH (08:33)
[2020-12-11] MEDS: FLUTICASONE PROP 0.05% NASAL SPRAY 16 GM (FLONASE) NARES SCH (08:33)
[2020-12-11] MEDS: predniSONE 20 MG TAB PO SCH (08:33)
[2020-12-11] MEDS: ASPIRIN 81MG ENTERIC TABLET PO SCH (08:33)
[2020-12-11] MEDS: SODIUM CHLORIDE NASAL 0.65% SPRAY BTL (OCEAN) SCH (08:33)
[2020-12-11 08:36] VITALS: BP 105/50
[2020-12-11 08:40] VITALS: BP 105/50
[2020-12-11] MEDS: CARVedilol 12.5 MG TAB PO SCH (08:40)
[2020-12-11] MEDS ORDERED: MUCI600T31 PO (13:25)
[2020-12-11] MEDS ORDERED: ACET1TAB55 PO (13:25)
[2020-12-11] MEDS ORDERED: ALBU8.5H INH (13:25)
[2020-12-11] MEDS ORDERED: LEVO750T13 PO (13:25)
[2020-12-11] MEDS ORDERED: PRED10TA2 PO (13:25)
[2020-12-11] MEDS ORDERED: FLUT1BLS5 INH (13:25)
[2020-12-11] MEDS ORDERED: CARV25TA PO (13:25)
[2020-12-11] MEDS ORDERED: POTA1TAB24 PO (19:46)
[2020-12-11] MEDS ORDERED: LASI20TA3 PO (19:46)
== END 2020-12-11 14:36 | disposition home or self-care (01) | DRG 133 ==
LOC: M ED 06:41 → M ED INP 14:01 → M PCU 22:05 → M MSPAV 12-10 20:10 → M PCU 12-10 20:16 → M MSPAV 12-10 21:43
PROVIDERS: ADMIT Family Medicine; ATTEND Family Medicine
DX: J96.01 Acute respiratory failure with hypoxia (principal); J18.9 Pneumonia, unspecified organism; I11.0 Hypertensive heart disease with heart failure; J44.1 Chronic obstructive pulmonary disease with (acute) exacerbation; I50.32 Chronic diastolic (congestive) heart failure; Z79.82 Long term (current) use of aspirin; Z79.899 Other long term (current) drug therapy; Z91.041 Radiographic dye allergy status; I25.10 Atherosclerotic heart disease of native coronary artery without angina pectoris; Z95.2 Presence of prosthetic heart valve

== ENCOUNTER → 2021-12-20 | Outpatient (CLI) | payer OTHER ==
[~2021-12-20] MED LIST changes: +ACET1TAB55 PO; +ALBU2.5V10 INH; +ALBU8.5H INH; -ALBU83IN INH; +ASPI-161 PO; +EZET10TA21 PO; +FLUT1BLS5 INH; +LASI20TA3 PO; +LEVO750T13 PO; +LISI10TA22 PO; +MUCI600T31 PO; +POTA1TAB24 PO; +PRED10TA2 PO; +VITA100093 PO
== END ==
LOC: M RAD 13:01
PROVIDERS: ATTEND Physician Assistant
DX: Z12.2 Encounter for screening for malignant neoplasm of respiratory organs (principal); F17.218 Nicotine dependence, cigarettes, with other nicotine-induced disorders

== ENCOUNTER → 2022-01-22 | Outpatient (CLI) | payer OTHER ==
[~2022-01-22] VITALS: Ht 162.6 cm; Wt 72.7 kg
[~2022-01-22] MED LIST changes: +LEVO1TAB40 PO; -LEVO750T13 PO
[2022-01-22 14:11] VITALS: BP 121/57
== END ==
LOC: M PAL 13:32
PROVIDERS: ATTEND Nurse Practitioner Adult Health
DX: J43.2 Centrilobular emphysema (principal); J47.9 Bronchiectasis, uncomplicated; F17.210 Nicotine dependence, cigarettes, uncomplicated; I10 Essential (primary) hypertension; I73.9 Peripheral vascular disease, unspecified; I25.10 Atherosclerotic heart disease of native coronary artery without angina pectoris; I25.2 Old myocardial infarction; K21.9 Gastro-esophageal reflux disease without esophagitis; Z86.73 Personal history of transient ischemic attack (TIA), and cerebral infarction without residual deficits; G89.29 Other chronic pain; M54.50 Low back pain, unspecified; R25.2 Cramp and spasm; Z95.820 Peripheral vascular angioplasty status with implants and grafts; Z95.5 Presence of coronary angioplasty implant and graft; Z91.041 Radiographic dye allergy status; Z79.899 Other long term (current) drug therapy; Z51.5 Encounter for palliative care; Z86.718 Personal history of other venous thrombosis and embolism; Z79.51 Long term (current) use of inhaled steroids; Z79.82 Long term (current) use of aspirin; E78.5 Hyperlipidemia, unspecified; Z90.49 Acquired absence of other specified parts of digestive tract

== ENCOUNTER → 2022-01-23 | Outpatient (CLI) | payer OTHER ==
[2022-01-23 15:22] LABS: BASO # 0.1 10^3/uL (0.0-0.2); BASO % 1.1 % (0.0-1.0); EOS # 0.2 10^3/uL (0.0-0.5); EOS % 2.2 % (0.0-3.0); HEMATOCRIT 44.9 % (36.0-47.0); LYMPH # 2.7 10^3/uL (1.5-5.0); LYMPH % 32.6 % (24.0-44.0); MEAN CORPUSCULAR HEMOGLOBIN 32.1 pg (27.0-33.0); MEAN CORPUSCULAR HGB CONC 33.4 g/dl (32.0-36.5); MEAN CORPUSCULAR VOLUME 96.1 fl (80.0-96.0); MONO # 0.8 10^3/uL (0.0-0.8); MONO % 9.1 % (2.0-8.0); NEUTROPHILS # 4.5 10^3/uL (1.5-8.5); NEUTROPHILS % 54.8 % (36.0-66.0); PLATELET COUNT, AUTOMATED 225 10^3/uL (150-450); RED BLOOD COUNT 4.67 10^6/uL (4.00-5.40); WHITE BLOOD COUNT 8.2 10^3/uL (4.0-10.0)
[2022-01-23 16:07] LABS: ALBUMIN 3.3 GM/DL (3.2-5.2); ALT/SGPT 17 U/L (12-78); BILIRUBIN,TOTAL 0.4 MG/DL (0.2-1.0); BLOOD UREA NITROGEN 9 MG/DL (7-18); CALCIUM LEVEL 9.2 MG/DL (8.8-10.2); CARBON DIOXIDE LEVEL 27 MEQ/L (21-32); CHLORIDE LEVEL 106 MEQ/L (98-107); CREATININE FOR GFR 0.72 MG/DL (0.55-1.30); GLOMERULAR FILTRATION RATE > 60.0 (>45); GLUCOSE, FASTING 136 MG/DL (70-100); POTASSIUM SERUM 4.4 MEQ/L (3.5-5.1); SODIUM LEVEL 137 MEQ/L (136-145); TOTAL PROTEIN 6.8 GM/DL (6.4-8.2)
== END ==
LOC: M LAB 14:36
PROVIDERS: ATTEND Nurse Practitioner Adult Health
DX: J44.9 Chronic obstructive pulmonary disease, unspecified (principal); I25.10 Atherosclerotic heart disease of native coronary artery without angina pectoris; R53.83 Other fatigue

== ENCOUNTER 2022-04-04 14:07 | Inpatient (IN) | payer OTHER ==
[~2022-04-04] VITALS: Ht 152.4 cm; Wt 71.2 kg
[~2022-04-04 14:07] MED LIST changes: +CLOP75TA99 PO; -PLAV1TAB2 PO
[2022-04-04] MEDS ORDERED: NS 500 ML IV ONE (14:45)
[2022-04-04] MEDS: METOPROLOL 5 MG/5 ML VIAL IV SCH ×3 (14:45→15:17)
[2022-04-04] MEDS ORDERED: METOPROLOL TART 25 MG TABLET PO ONE (15:50)
[2022-04-04 16:03] LABS: BASO # 0.1 10^3/uL (0.0-0.2); EOS # 0.2 10^3/uL (0.0-0.5); EOS % 2.2 % (0.0-3.0); HEMATOCRIT 45.6 % (36.0-47.0); HEMOGLOBIN 14.6 g/dl (12.0-15.5); LYMPH # 2.3 10^3/uL (1.5-5.0); LYMPH % 24.6 % (24.0-44.0); MEAN CORPUSCULAR HEMOGLOBIN 30.5 pg (27.0-33.0); MEAN CORPUSCULAR VOLUME 95.4 fl (80.0-96.0); MONO # 0.8 10^3/uL (0.0-0.8); MONO % 8.7 % (2.0-8.0); NEUTROPHILS # 5.9 10^3/uL (1.5-8.5); NEUTROPHILS % 63.2 % (36.0-66.0); PLATELET COUNT, AUTOMATED 240 10^3/uL (150-450); RED BLOOD COUNT 4.78 10^6/uL (4.00-5.40); WHITE BLOOD COUNT 9.2 10^3/uL (4.0-10.0)
[2022-04-04 16:19] LABS: CK-MB VALUE MASS < 1.0 NG/ML (<3.6); CPK CREATINE PHOSPHOKINASE 27 U/L (26-192)
[2022-04-04 16:28] LABS: ALBUMIN 3.1 GM/DL (3.2-5.2); ALT/SGPT 20 U/L (12-78); BILIRUBIN,DIRECT 0.1 MG/DL (0.0-0.2); BILIRUBIN,TOTAL 0.5 MG/DL (0.2-1.0); BLOOD UREA NITROGEN 14 MG/DL (7-18); CALCIUM LEVEL 9.5 MG/DL (8.8-10.2); CARBON DIOXIDE LEVEL 23 MEQ/L (21-32); CHLORIDE LEVEL 105 MEQ/L (98-107); CREATININE FOR GFR 0.68 MG/DL (0.55-1.30); FREE T4 1.46 NG/DL (0.76-1.46); GLOMERULAR FILTRATION RATE > 60.0 (>45); GLUCOSE, FASTING 178 MG/DL (70-100); LIPASE 124 U/L (73-393); NT-PRO BNP 832 PG/ML (<125); POTASSIUM SERUM 4.4 MEQ/L (3.5-5.1); SODIUM LEVEL 137 MEQ/L (136-145); TOTAL PROTEIN 6.8 GM/DL (6.4-8.2)
[2022-04-04 17:40] LABS: CK-MB VALUE MASS 1.7 NG/ML (<3.6)
[2022-04-04 18:52] LABS: MB/CK RELATIVE INDEX 5.13 (< OR =4)
[2022-04-04 19:12] LABS: RSV AMPLIFICATION NEGATIVE (NEGATIVE)
[2022-04-04] MEDS ORDERED: ATORVASTATIN 20 MG TAB PO SCH (21:00)
[2022-04-04] MEDS ORDERED: ENOXAPARIN 100MG/1ML SYRINGE (J1650 PER 10MG) SC ONE (22:50)
[2022-04-04] MEDS ORDERED: NITROGLYCERIN 0.4 MG SUBL TABLET SL PRN (22:50)
[2022-04-04] MEDS ORDERED: ACETAMINOPHEN TAB 650MG DOSE (2X325MG) PO PRN (22:50)
[2022-04-04] MEDS ORDERED: ALBU8.5H INH (23:37)
[2022-04-04] MEDS ORDERED: CARV25TA PO (23:37)
[2022-04-04] MEDS ORDERED: QVAR80AE8 INH (23:37)
[2022-04-04] MEDS ORDERED: HOME MED LIST COMPLETE! XX SCH (23:40)
[2022-04-04] MEDS ORDERED: HEPARIN SOD (PORCINE) 5000UNITS/ML 1ML VIAL/SYRINGE IV PRN (23:55)
[2022-04-05 00:25] VITALS: BP 153/67
[2022-04-05 00:49] LABS: HEMATOCRIT 41.9 % (36.0-47.0); HEMOGLOBIN 13.6 g/dl (12.0-15.5); MEAN CORPUSCULAR HGB CONC 32.5 g/dl (32.0-36.5); MEAN CORPUSCULAR VOLUME 95.4 fl (80.0-96.0); PLATELET COUNT, AUTOMATED 241 10^3/uL (150-450); RED BLOOD COUNT 4.39 10^6/uL (4.00-5.40); WHITE BLOOD COUNT 10.7 10^3/uL (4.0-10.0)
[2022-04-05] MEDS ORDERED: HEPARIN SOD (PORCINE) 5000UNITS/ML 1ML VIAL/SYRINGE IV ONE (01:05)
[2022-04-05] MEDS: HEPARIN DRIP 25,000 UNITS in IV 1 EA IV SCH ×3 (01:24→18:50)
[2022-04-05] MEDS: IPRATROPIUM 0.5MG/ALBUTEROL 2.5MG INH SOL UD 3ML (DUONEB) NEB SCH ×4 (01:55→19:46)
[2022-04-05 04:37] VITALS: BP 115/53
[2022-04-05 08:00] VITALS: BP 147/63
[2022-04-05] MEDS: ASPIRIN 81 MG CHEW TABLET PO SCH (08:08)
[2022-04-05] MEDS: METOPROLOL TART 25 MG TABLET PO SCH ×2 (08:09→20:53)
[2022-04-05 08:30] LABS: INR 1.09; PROTHROMBIN TIME 14.3 SECONDS (12.5-14.5)
[2022-04-05] MEDS ORDERED: FLUBLOK(EGG FREE)(QUAD)INFLUENZA VACC 0.5ML SYRINGE 18YRS & OLDER IM.IMMUN ONE (09:00)
[2022-04-05 09:07] LABS: BLOOD UREA NITROGEN 12 MG/DL (7-18); CARBON DIOXIDE LEVEL 24 MEQ/L (21-32); CHLORIDE LEVEL 106 MEQ/L (98-107); CREATININE FOR GFR 0.62 MG/DL (0.55-1.30); GLOMERULAR FILTRATION RATE > 60.0 (>45); GLUCOSE, FASTING 111 MG/DL (70-100); MAGNESIUM LEVEL 1.9 MG/DL (1.8-2.4); POTASSIUM SERUM 4.2 MEQ/L (3.5-5.1); SODIUM LEVEL 138 MEQ/L (136-145)
[2022-04-05 09:11] LABS: PARTIAL THROMBOPLASTIN TIME 159.7 SECONDS (24.8-34.2)
[2022-04-05 11:54] VITALS: BP 138/59
[2022-04-05] MEDS: OMEPRAZOLE 20MG CAP PO SCH (13:14)
[2022-04-05] MEDS: SIMVASTATIN 40 MG TAB PO SCH (13:14)
[2022-04-05] MEDS: EZETIMIBE 10MG TABLET (ZETIA) PO SCH (13:14)
[2022-04-05] MEDS: NICOTINE 14 MG/24 HR TRANSDERMAL TD SCH (14:02)
[2022-04-05 16:00] VITALS: BP 156/63
[2022-04-05 20:00] VITALS: BP 145/62
[2022-04-06] VITALS: BP 137/55
[2022-04-06] MEDS: IPRATROPIUM 0.5MG/ALBUTEROL 2.5MG INH SOL UD 3ML (DUONEB) NEB SCH ×4 (03:35→20:04)
[2022-04-06 04:00] VITALS: BP 149/66
[2022-04-06 08:00] VITALS: BP 138/63
[2022-04-06 08:11] LABS: BASO # 0.1 10^3/uL (0.0-0.2); BASO % 0.8 % (0.0-1.0); EOS # 0.4 10^3/uL (0.0-0.5); EOS % 4.7 % (0.0-3.0); HEMATOCRIT 40.4 % (36.0-47.0); HEMOGLOBIN 12.8 g/dl (12.0-15.5); LYMPH # 2.6 10^3/uL (1.5-5.0); LYMPH % 31.3 % (24.0-44.0); MEAN CORPUSCULAR HEMOGLOBIN 30.5 pg (27.0-33.0); MEAN CORPUSCULAR HGB CONC 31.7 g/dl (32.0-36.5); MEAN CORPUSCULAR VOLUME 96.4 fl (80.0-96.0); MONO # 0.9 10^3/uL (0.0-0.8); MONO % 11.1 % (2.0-8.0); NEUTROPHILS # 4.3 10^3/uL (1.5-8.5); NEUTROPHILS % 51.5 % (36.0-66.0); PLATELET COUNT, AUTOMATED 201 10^3/uL (150-450); RED BLOOD COUNT 4.19 10^6/uL (4.00-5.40); WHITE BLOOD COUNT 8.3 10^3/uL (4.0-10.0)
[2022-04-06] MEDS: SIMVASTATIN 40 MG TAB PO SCH (08:32)
[2022-04-06] MEDS: NICOTINE 14 MG/24 HR TRANSDERMAL TD SCH (08:32)
[2022-04-06] MEDS: ASPIRIN 81 MG CHEW TABLET PO SCH (08:32)
[2022-04-06] MEDS: EZETIMIBE 10MG TABLET (ZETIA) PO SCH (08:33)
[2022-04-06] MEDS: OMEPRAZOLE 20MG CAP PO SCH (08:33)
[2022-04-06] MEDS: METOPROLOL TART 25 MG TABLET PO SCH ×2 (08:33→20:16)
[2022-04-06 08:39] LABS: BLOOD UREA NITROGEN 12 MG/DL (7-18); CALCIUM LEVEL 9.1 MG/DL (8.8-10.2); CARBON DIOXIDE LEVEL 26 MEQ/L (21-32); CHLORIDE LEVEL 105 MEQ/L (98-107); CREATININE FOR GFR 0.61 MG/DL (0.55-1.30); GLOMERULAR FILTRATION RATE > 60.0 (>45); GLUCOSE, FASTING 115 MG/DL (70-100); POTASSIUM SERUM 4.3 MEQ/L (3.5-5.1); SODIUM LEVEL 138 MEQ/L (136-145)
[2022-04-06] MEDS: HEPARIN DRIP 25,000 UNITS in IV 1 EA IV SCH ×2 (08:40→15:06)
[2022-04-06 08:48] LABS: CK-MB VALUE MASS < 1.0 NG/ML (<3.6); CPK CREATINE PHOSPHOKINASE 29 U/L (26-192); MB/CK RELATIVE INDEX 3.45 (< OR =4)
[2022-04-06 11:37] VITALS: BP 158/64
[2022-04-06 16:00] VITALS: BP 155/75
[2022-04-06 20:00] VITALS: BP 145/53
[2022-04-06] MEDS: ALBUTEROL SULFATE 2.5 MG/0.5 ML INH NEB SOLN NEB PRN (22:45)
[2022-04-07 00:56] VITALS: BP 144/48
[2022-04-07] MEDS: IPRATROPIUM 0.5MG/ALBUTEROL 2.5MG INH SOL UD 3ML (DUONEB) NEB SCH ×4 (01:25→18:07)
[2022-04-07] MEDS: ALBUTEROL SULFATE 2.5 MG/0.5 ML INH NEB SOLN NEB PRN ×3 (04:32→23:43)
[2022-04-07 04:40] VITALS: BP 127/56
[2022-04-07] MEDS: SIMVASTATIN 40 MG TAB PO SCH (08:23)
[2022-04-07] MEDS: EZETIMIBE 10MG TABLET (ZETIA) PO SCH (08:23)
[2022-04-07] MEDS: OMEPRAZOLE 20MG CAP PO SCH (08:23)
[2022-04-07] MEDS: ASPIRIN 81 MG CHEW TABLET PO SCH (08:23)
[2022-04-07] MEDS: NICOTINE 14 MG/24 HR TRANSDERMAL TD SCH (08:24)
[2022-04-07] MEDS: METOPROLOL TART 25 MG TABLET PO SCH ×2 (08:26→20:03)
[2022-04-07] MEDS: HEPARIN DRIP 25,000 UNITS in IV 1 EA IV SCH (11:26)
[2022-04-07] MEDS ORDERED: ELIQ5TAB PO (12:36)
[2022-04-07] MEDS: CLOPIDOGREL 75 MG TAB PO SCH (13:14)
[2022-04-07 14:00] VITALS: BP 155/54
[2022-04-07 19:50] VITALS: BP 172/64
[2022-04-07 21:00] VITALS: BP 148/62
[2022-04-08] MEDS: IPRATROPIUM 0.5MG/ALBUTEROL 2.5MG INH SOL UD 3ML (DUONEB) NEB SCH ×2 (01:23→08:28)
[2022-04-08 05:30] VITALS: BP 142/50
[2022-04-08] MEDS ORDERED: PANT40TA29 PO (08:04)
[2022-04-08] MEDS ORDERED: SIMV40TA20 PO (08:04)
[2022-04-08] MEDS ORDERED: NICO14PA TD (08:04)
[2022-04-08] MEDS ORDERED: METO1TAB87 PO (08:04)
[2022-04-08] MEDS ORDERED: CLOP75TA2 PO (08:04)
[2022-04-08 08:43] VITALS: BP 158/60
[2022-04-08] MEDS: NICOTINE 14 MG/24 HR TRANSDERMAL TD SCH (08:43)
[2022-04-08] MEDS: SIMVASTATIN 40 MG TAB PO SCH (08:43)
[2022-04-08] MEDS: EZETIMIBE 10MG TABLET (ZETIA) PO SCH (08:43)
[2022-04-08] MEDS: CLOPIDOGREL 75 MG TAB PO SCH (08:43)
[2022-04-08] MEDS: METOPROLOL TART 25 MG TABLET PO SCH (08:43)
[2022-04-08] MEDS: ASPIRIN 81 MG CHEW TABLET PO SCH (08:43)
[2022-04-08] MEDS ORDERED: PANTOPRAZOLE 40MG TAB (PROTONIX) PO SCH (09:00)
[2022-04-08] MEDS ORDERED: diphenhydrAMINE 50MG CAP PO STA (10:38)
[2022-04-08] MEDS ORDERED: CLOPIDOGREL 300 MG TAB (PLAVIX) PO STA (10:38)
[2022-04-08] MEDS ORDERED: methylPREDNISolone 125MG 2ML VIAL IV ONE (10:40)
[2022-04-08] MEDS ORDERED: CLOPIDOGREL 75 MG TAB PO STA (10:43)
[2022-04-08] MEDS ORDERED: BUDESONIDE 0.5 MG/2 ML INHALATION SUSPENSION INH SCH (20:00)
== END 2022-04-08 12:21 | disposition short-term general hospital (02) | DRG 190 ==
LOC: EDBD 14:07 → M ED 14:07 → M ED INP 22:50 → M PCU 04-05 00:16 → M MSPAV 04-07 00:54
PROVIDERS: ADMIT Internal Medicine; ATTEND Internal Medicine Nephrology
DX: I21.4 Non-ST elevation (NSTEMI) myocardial infarction (principal); I10 Essential (primary) hypertension; I73.9 Peripheral vascular disease, unspecified; F17.210 Nicotine dependence, cigarettes, uncomplicated; J45.909 Unspecified asthma, uncomplicated; E78.5 Hyperlipidemia, unspecified; K44.9 Diaphragmatic hernia without obstruction or gangrene; J44.9 Chronic obstructive pulmonary disease, unspecified; G89.29 Other chronic pain; K21.9 Gastro-esophageal reflux disease without esophagitis; I08.0 Rheumatic disorders of both mitral and aortic valves; K43.9 Ventral hernia without obstruction or gangrene; I48.0 Paroxysmal atrial fibrillation; I25.110 Atherosclerotic heart disease of native coronary artery with unstable angina pectoris; M54.9 Dorsalgia, unspecified; I25.2 Old myocardial infarction; Z79.82 Long term (current) use of aspirin; Z79.899 Other long term (current) drug therapy; Z86.718 Personal history of other venous thrombosis and embolism; Z91.041 Radiographic dye allergy status; Z98.62 Peripheral vascular angioplasty status; Z95.5 Presence of coronary angioplasty implant and graft

== ENCOUNTER 2022-05-06 13:14 | Emergency (ER) | payer OTHER ==
[~2022-05-06] VITALS: Ht 152.4 cm; Wt 74.5 kg
[2022-05-06 13:14] VITALS: BP 194/78
[~2022-05-06 13:14] MED LIST changes: +CLOP75TA2 PO; +ELIQ5TAB PO; +METO1TAB87 PO; +NICO14PA TD; +PANT40TA29 PO; +QVAR80AE8 INH
[2022-05-06 15:32] LABS: RSV AMPLIFICATION NEGATIVE (NEGATIVE)
== END 2022-05-06 18:21 | disposition left against medical advice (07) ==
LOC: M ED 13:14
DX: Z53.21 Procedure and treatment not carried out due to patient leaving prior to being seen by health care provider (principal)

== ENCOUNTER → 2022-06-21 | Outpatient (CLI) | payer OTHER ==
[2022-06-21 17:58] LABS: HEMATOCRIT 41.9 % (36.0-47.0); MEAN CORPUSCULAR HEMOGLOBIN 30.4 pg (27.0-33.0); MEAN CORPUSCULAR VOLUME 97.9 fl (80.0-96.0); PLATELET COUNT, AUTOMATED 280 10^3/uL (150-450); RED BLOOD COUNT 4.28 10^6/uL (4.00-5.40); WHITE BLOOD COUNT 9.7 10^3/uL (4.0-10.0)
[2022-06-21 19:25] LABS: ALBUMIN 3.3 G/DL (3.2-5.2); ALKALINE PHOSPHATASE 153 U/L (46-116); ALT/SGPT 35 U/L (7.0-40); AST/SGOT 26 U/L (<34); BILIRUBIN,TOTAL 0.4 MG/DL (0.3-1.2); BLOOD UREA NITROGEN 13 MG/DL (9-23); CALCIUM LEVEL 9.3 MG/DL (8.3-10.6); CARBON DIOXIDE LEVEL 28 MMOL/L (20-31); CHLORIDE LEVEL 103 MMOL/L (98-107); CHOLESTEROL LEVEL 132 MG/DL (<200); CHOLESTEROL RISK RATIO 2.24 (<5); CREATININE FOR GFR 0.64 MG/DL (0.55-1.30); GLOMERULAR FILTRATION RATE > 60.0 (>45); GLUCOSE, FASTING 110 MG/DL (74-106); HDL CHOLESTEROL 58.8 MG/DL (>40); LDL CHOLESTEROL 49.6 MG/DL (<100); NON-HDL-C 73 MG/DL; POTASSIUM SERUM 4.2 MMOL/L (3.5-5.1); SODIUM LEVEL 137 MMOL/L (136-145); TRIGLYCERIDES LEVEL 118 MG/DL (<150)
== END ==
LOC: M WUC 14:19
PROVIDERS: ATTEND Nurse Practitioner Family
DX: I25.10 Atherosclerotic heart disease of native coronary artery without angina pectoris (principal); E78.2 Mixed hyperlipidemia

== ENCOUNTER → 2022-07-09 | Outpatient (CLI) | payer OTHER ==
[~2022-07-09] VITALS: Ht 152.4 cm; Wt 73.1 kg
[~2022-07-09] MED LIST changes: +D 101000 PO; +NEUR100C PO; +SERT25TA85 PO
[2022-07-09 10:51] VITALS: BP 181/54
== END ==
LOC: M PAL 10:44
PROVIDERS: ATTEND Nurse Practitioner Adult Health
DX: J43.2 Centrilobular emphysema (principal); J47.9 Bronchiectasis, uncomplicated; F17.210 Nicotine dependence, cigarettes, uncomplicated; Z79.51 Long term (current) use of inhaled steroids; M54.30 Sciatica, unspecified side; I10 Essential (primary) hypertension; I73.9 Peripheral vascular disease, unspecified; I25.2 Old myocardial infarction; K21.9 Gastro-esophageal reflux disease without esophagitis; Z86.718 Personal history of other venous thrombosis and embolism; G89.29 Other chronic pain; Z95.5 Presence of coronary angioplasty implant and graft; F17.290 Nicotine dependence, other tobacco product, uncomplicated; Z80.1 Family history of malignant neoplasm of trachea, bronchus and lung; F32.A Depression, unspecified; F41.9 Anxiety disorder, unspecified; Z51.5 Encounter for palliative care; Z91.041 Radiographic dye allergy status; Z79.899 Other long term (current) drug therapy; Z79.01 Long term (current) use of anticoagulants

== ENCOUNTER → 2022-08-06 | Outpatient (CLI) | payer OTHER | LOC: M PAL 07:49 | PROVIDERS: ATTEND Nurse Practitioner Family | DX: J43.2 Centrilobular emphysema (principal); J47.9 Bronchiectasis, uncomplicated; F17.210 Nicotine dependence, cigarettes, uncomplicated; M54.30 Sciatica, unspecified side; I10 Essential (primary) hypertension; I73.9 Peripheral vascular disease, unspecified; I25.2 Old myocardial infarction; K21.9 Gastro-esophageal reflux disease without esophagitis; G89.29 Other chronic pain; F17.200 Nicotine dependence, unspecified, uncomplicated; Z95.5 Presence of coronary angioplasty implant and graft; F41.9 Anxiety disorder, unspecified; F32.A Depression, unspecified; Z79.51 Long term (current) use of inhaled steroids; Z86.718 Personal history of other venous thrombosis and embolism; Z80.1 Family history of malignant neoplasm of trachea, bronchus and lung; Z51.5 Encounter for palliative care; Z91.041 Radiographic dye allergy status; Z79.899 Other long term (current) drug therapy; Z79.01 Long term (current) use of anticoagulants ==

== ENCOUNTER → 2022-09-04 | Outpatient (CLI) | payer OTHER ==
[~2022-09-04] VITALS: Ht 152.4 cm; Wt 74.8 kg
[~2022-09-04] MED LIST changes: +GABA-1171 PO; +IPRA0.00 INH
[2022-09-04 10:15] VITALS: BP 148/68
== END ==
LOC: M PAL 10:06
PROVIDERS: ATTEND Nurse Practitioner Adult Health
DX: J43.2 Centrilobular emphysema (principal); J47.9 Bronchiectasis, uncomplicated; F17.210 Nicotine dependence, cigarettes, uncomplicated; I10 Essential (primary) hypertension; I25.10 Atherosclerotic heart disease of native coronary artery without angina pectoris; Z95.5 Presence of coronary angioplasty implant and graft; I73.9 Peripheral vascular disease, unspecified; Z51.5 Encounter for palliative care; I25.2 Old myocardial infarction; K21.9 Gastro-esophageal reflux disease without esophagitis; Z86.718 Personal history of other venous thrombosis and embolism; G89.29 Other chronic pain; M54.9 Dorsalgia, unspecified; I48.91 Unspecified atrial fibrillation; F41.9 Anxiety disorder, unspecified; F32.A Depression, unspecified; Z79.899 Other long term (current) drug therapy; Z79.51 Long term (current) use of inhaled steroids; Z79.82 Long term (current) use of aspirin; Z91.041 Radiographic dye allergy status

== ENCOUNTER → 2022-10-09 | Outpatient (CLI) | payer OTHER ==
[~2022-10-09] VITALS: Ht 152.4 cm; Wt 75.2 kg
[2022-10-09 09:24] VITALS: BP 139/53
== END ==
LOC: M PAL 09:20
PROVIDERS: ATTEND Nurse Practitioner Adult Health
DX: J43.2 Centrilobular emphysema (principal); J47.9 Bronchiectasis, uncomplicated; Z51.5 Encounter for palliative care; M54.50 Low back pain, unspecified; F17.290 Nicotine dependence, other tobacco product, uncomplicated; F32.A Depression, unspecified; F41.8 Other specified anxiety disorders; I10 Essential (primary) hypertension; I73.9 Peripheral vascular disease, unspecified; I25.10 Atherosclerotic heart disease of native coronary artery without angina pectoris; I25.2 Old myocardial infarction; K21.9 Gastro-esophageal reflux disease without esophagitis; Z79.899 Other long term (current) drug therapy; Z91.041 Radiographic dye allergy status; Z95.820 Peripheral vascular angioplasty status with implants and grafts; Z95.5 Presence of coronary angioplasty implant and graft; Z86.718 Personal history of other venous thrombosis and embolism; Z80.1 Family history of malignant neoplasm of trachea, bronchus and lung; Z80.8 Family history of malignant neoplasm of other organs or systems

== ENCOUNTER 2022-10-17 09:39 | Emergency (ER) | payer OTHER ==
[~2022-10-17] VITALS: Ht 162.6 cm; Wt 74.5 kg
[2022-10-17] MEDS ORDERED: PERCOCET 5MG/325MG TAB PO ONE (09:50)
[2022-10-17] MEDS ORDERED: PERC5TAB12 PO (13:18)
[2022-10-17 14:17] VITALS: BP 151/66
== END 2022-10-17 14:19 | disposition home or self-care (01) ==
LOC: M ED 09:39 → EDBD 09:39 → M ED 14:19
DX: S32.010A Wedge compression fracture of first lumbar vertebra, initial encounter for closed fracture (principal); W19.XXXA Unspecified fall, initial encounter; Y92.009 Unspecified place in unspecified non-institutional (private) residence as the place of occurrence of the external cause; Y93.89 Activity, other specified; Y99.8 Other external cause status; I25.10 Atherosclerotic heart disease of native coronary artery without angina pectoris; I25.2 Old myocardial infarction; I10 Essential (primary) hypertension; J44.9 Chronic obstructive pulmonary disease, unspecified; I73.9 Peripheral vascular disease, unspecified; M54.9 Dorsalgia, unspecified; F17.200 Nicotine dependence, unspecified, uncomplicated; Z91.041 Radiographic dye allergy status; Z79.01 Long term (current) use of anticoagulants; Z79.899 Other long term (current) drug therapy; Z79.51 Long term (current) use of inhaled steroids

== ENCOUNTER → 2022-11-18 | Outpatient (CLI) | payer OTHER ==
[~2022-11-18] MED LIST changes: +PERC5TAB12 PO
== END ==
LOC: M SOG 08:58
PROVIDERS: ATTEND Orthopaedic Surgery
DX: M54.50 Low back pain, unspecified (principal)

== ENCOUNTER 2022-11-30 02:52 | Emergency (ER) | payer OTHER ==
[~2022-11-30] VITALS: Ht 165.1 cm; Wt 73.6 kg
[2022-11-30] MEDS ORDERED: NS 500 ML IV ONE (03:25)
[2022-11-30] MEDS: METOPROLOL 5 MG/5 ML VIAL IV SCH ×3 (03:28→03:47)
[2022-11-30 03:40] LABS: BASO # 0.1 10^3/uL (0.0-0.2); EOS # 0.3 10^3/uL (0.0-0.5); EOS % 3.2 % (0.0-3.0); HEMATOCRIT 40.1 % (36.0-47.0); HEMOGLOBIN 12.8 g/dl (12.0-15.5); LYMPH # 3.7 10^3/uL (1.5-5.0); LYMPH % 35.6 % (24.0-44.0); MEAN CORPUSCULAR HEMOGLOBIN 28.3 pg (27.0-33.0); MEAN CORPUSCULAR HGB CONC 31.9 g/dl (32.0-36.5); MEAN CORPUSCULAR VOLUME 88.7 fl (80.0-96.0); MONO # 0.9 10^3/uL (0.0-0.8); MONO % 8.5 % (2.0-8.0); NEUTROPHILS # 5.4 10^3/uL (1.5-8.5); NEUTROPHILS % 51.4 % (36.0-66.0); PLATELET COUNT, AUTOMATED 382 10^3/uL (150-450); RED BLOOD COUNT 4.52 10^6/uL (4.00-5.40); WHITE BLOOD COUNT 10.5 10^3/uL (4.0-10.0)
[2022-11-30] MEDS ORDERED: atenoloL 25 MG TAB PO ONE (03:45)
[2022-11-30 03:47] VITALS: BP 148/65
[2022-11-30 03:51] LABS: BLOOD UREA NITROGEN 18 MG/DL (9-23); CALCIUM LEVEL 9.8 MG/DL (8.3-10.6); CARBON DIOXIDE LEVEL 23 MMOL/L (20-31); CHLORIDE LEVEL 102 MMOL/L (98-107); CK-MB VALUE MASS < 1.0 NG/ML (<3.6); CPK CREATINE PHOSPHOKINASE 36 U/L (34-145); CREATININE FOR GFR 0.66 MG/DL (0.55-1.30); GLOMERULAR FILTRATION RATE > 60.0 (>45); GLUCOSE, FASTING 149 MG/DL (74-106); MB/CK RELATIVE INDEX 2.77 (< OR =4); POTASSIUM SERUM 4.1 MMOL/L (3.5-5.1); SODIUM LEVEL 135 MMOL/L (136-145)
[2022-11-30] MEDS ORDERED: DIGOXIN INJ 0.5 MG/2 ML AMP IV ONE (04:45)
[2022-11-30 05:23] LABS: CK-MB VALUE MASS < 1.0 NG/ML (<3.6)
[2022-11-30 05:24] LABS: CPK CREATINE PHOSPHOKINASE 35 U/L (34-145); MB/CK RELATIVE INDEX 2.85 (< OR =4)
[2022-11-30] MEDS ORDERED: LOPR1TAB6 PO (06:43)
[2022-11-30 06:57] VITALS: BP 156/68; TEMP 98; O2SAT 98
== END 2022-11-30 07:41 | disposition home or self-care (01) ==
LOC: M ED 02:52
DX: I48.91 Unspecified atrial fibrillation (principal); I24.8 Other forms of acute ischemic heart disease; I11.9 Hypertensive heart disease without heart failure; I25.10 Atherosclerotic heart disease of native coronary artery without angina pectoris; J44.9 Chronic obstructive pulmonary disease, unspecified; E78.5 Hyperlipidemia, unspecified; Z79.01 Long term (current) use of anticoagulants; F17.200 Nicotine dependence, unspecified, uncomplicated; Z91.041 Radiographic dye allergy status; Z79.899 Other long term (current) drug therapy; Z79.82 Long term (current) use of aspirin; Z79.51 Long term (current) use of inhaled steroids
CPT/HCPCS: 71045; 80048; 82550; 82553; 85025; 93005; 96374; 96375; 99285; J1160

== ENCOUNTER → 2023-01-08 | Outpatient (CLI) | payer OTHER ==
[~2023-01-08] VITALS: Ht 152.4 cm; Wt 74.7 kg
[~2023-01-08] MED LIST changes: +LOPR1TAB6 PO
[2023-01-08 09:23] VITALS: BP 171/64; TEMP 97.3; O2SAT 97
== END ==
LOC: M PAL 09:14
PROVIDERS: ATTEND Nurse Practitioner Adult Health
DX: J44.9 Chronic obstructive pulmonary disease, unspecified (principal); Z51.5 Encounter for palliative care; M54.50 Low back pain, unspecified; G89.29 Other chronic pain; Z79.899 Other long term (current) drug therapy; I25.10 Atherosclerotic heart disease of native coronary artery without angina pectoris; I48.91 Unspecified atrial fibrillation; F17.200 Nicotine dependence, unspecified, uncomplicated; F32.A Depression, unspecified; F41.9 Anxiety disorder, unspecified; Z59.86 Financial insecurity; Z80.1 Family history of malignant neoplasm of trachea, bronchus and lung; Z80.8 Family history of malignant neoplasm of other organs or systems; I10 Essential (primary) hypertension; I73.9 Peripheral vascular disease, unspecified; Z95.828 Presence of other vascular implants and grafts; I25.2 Old myocardial infarction; K21.9 Gastro-esophageal reflux disease without esophagitis; Z86.718 Personal history of other venous thrombosis and embolism; M79.2 Neuralgia and neuritis, unspecified; Z91.041 Radiographic dye allergy status; Z79.01 Long term (current) use of anticoagulants

== ENCOUNTER → 2023-01-27 | Outpatient (CLI) | payer OTHER | LOC: M RAD 17:03 | PROVIDERS: ATTEND Physician Assistant | DX: Z87.891 Personal history of nicotine dependence (principal) ==

== ENCOUNTER → 2023-09-01 | Outpatient (CLI) | payer OTHER ==
[~2023-09-01] MED LIST changes: -ASPI-161 PO; +ASPI-615 PO
[2023-09-01 12:16] LABS: HEMOGLOBIN A1c 6.5 % (4.0-6.0)
[2023-09-01 12:21] LABS: BASO # 0.1 10^3/uL (0.0-0.2); BASO % 1.1 % (0.0-1.0); EOS # 0.2 10^3/uL (0.0-0.5); EOS % 3.4 % (0.0-3.0); HEMATOCRIT 39.2 % (36.0-47.0); HEMOGLOBIN 12.2 g/dl (12.0-15.5); LYMPH # 2.4 10^3/uL (1.5-5.0); LYMPH % 34.4 % (24.0-44.0); MEAN CORPUSCULAR HEMOGLOBIN 28.6 pg (27.0-33.0); MEAN CORPUSCULAR HGB CONC 31.1 g/dl (32.0-36.5); MEAN CORPUSCULAR VOLUME 91.8 fl (80.0-96.0); MONO # 0.7 10^3/uL (0.0-0.8); MONO % 9.9 % (2.0-8.0); NEUTROPHILS # 3.6 10^3/uL (1.5-8.5); NEUTROPHILS % 51.1 % (36.0-66.0); PLATELET COUNT, AUTOMATED 238 10^3/uL (150-450); RED BLOOD COUNT 4.27 10^6/uL (4.00-5.40)
[2023-09-01 12:30] LABS: THYROID STIMULATING HORMONE 2.299 uIU/ML (0.55-4.78)
[2023-09-01 12:31] LABS: FREE T4 1.09 NG/DL (0.89-1.76)
[2023-09-01 12:32] LABS: ALBUMIN 3.4 G/DL (3.2-5.2); ALKALINE PHOSPHATASE 109 U/L (46-116); ALT/SGPT 21 U/L (7.0-40); AST/SGOT 15 U/L (<34); BILIRUBIN,TOTAL 0.6 MG/DL (0.3-1.2); BLOOD UREA NITROGEN 14 MG/DL (9-23); CALCIUM LEVEL 9.6 MG/DL (8.3-10.6); CARBON DIOXIDE LEVEL 26 MMOL/L (20-31); CHLORIDE LEVEL 105 MMOL/L (98-107); CHOLESTEROL LEVEL 127 MG/DL (<200); CHOLESTEROL RISK RATIO 2.68 (<5); CREATININE FOR GFR 0.73 MG/DL (0.55-1.30); GLOMERULAR FILTRATION RATE > 60.0 (>45); GLUCOSE, FASTING 126 MG/DL (74-106); HDL CHOLESTEROL 47.3 MG/DL (>40); LDL CHOLESTEROL 54.7 MG/DL (<100); NON-HDL-C 79.7 MG/DL; SODIUM LEVEL 140 MMOL/L (136-145); TOTAL PROTEIN 6.7 G/DL (5.7-8.2); TRIGLYCERIDES LEVEL 125 MG/DL (<150)
== END ==
LOC: M WUC 09:45
PROVIDERS: ATTEND Nurse Practitioner Adult Health
DX: I25.10 Atherosclerotic heart disease of native coronary artery without angina pectoris (principal); I10 Essential (primary) hypertension; R53.83 Other fatigue; E78.5 Hyperlipidemia, unspecified; E55.9 Vitamin D deficiency, unspecified; K21.9 Gastro-esophageal reflux disease without esophagitis; I48.0 Paroxysmal atrial fibrillation

== ENCOUNTER 2023-09-16 13:37 | Emergency (ER) | payer OTHER ==
[~2023-09-16] VITALS: Ht 152.4 cm; Wt 68.2 kg
[~2023-09-16 13:37] MED LIST changes: -ISOVUE-370 76% 100ML VIAL As Ordered ONE
[2023-09-16 13:38] VITALS: BP 150/84; TEMP 97.1; O2SAT 99
[2023-09-16 14:30] LABS: HEMOGLOBIN 12.5 g/dl (12.0-15.5); MEAN CORPUSCULAR HGB CONC 32.1 g/dl (32.0-36.5); MEAN CORPUSCULAR VOLUME 90.5 fl (80.0-96.0); PLATELET COUNT, AUTOMATED 236 10^3/uL (150-450); RED BLOOD COUNT 4.31 10^6/uL (4.00-5.40); WHITE BLOOD COUNT 7.3 10^3/uL (4.0-10.0)
[2023-09-16 14:44] LABS: BLOOD UREA NITROGEN 16 MG/DL (9-23); CALCIUM LEVEL 9.3 MG/DL (8.3-10.6); CARBON DIOXIDE LEVEL 24 MMOL/L (20-31); CHLORIDE LEVEL 103 MMOL/L (98-107); CK-MB VALUE MASS < 1.0 NG/ML (<3.6); CREATININE FOR GFR 0.76 MG/DL (0.55-1.30); GLOMERULAR FILTRATION RATE > 60.0 (>45); GLUCOSE, FASTING 219 MG/DL (74-106); POTASSIUM SERUM 4.1 MMOL/L (3.5-5.1); SODIUM LEVEL 135 MMOL/L (136-145)
[2023-09-16 14:45] LABS: CPK CREATINE PHOSPHOKINASE 49 U/L (34-145); MB/CK RELATIVE INDEX 2.04 (< OR =4)
[2023-09-16 15:23] LABS: ATYPICAL LYMPH 1 % (0-5); LYMPHOCYTES 4 % (16-44); MONOCYTES 1 % (0-5); NEUTROPHILS 93 % (28-66)
[2023-09-16 15:24] LABS: PLATELET ESTIMATE NORMAL (NORMAL)
[2023-09-16 15:25] LABS: ANISOCYTOSIS 1+; BURR CELLS 1+; OVALOCYTES 1+; POIKILOCYTOSIS 1+
== END 2023-09-16 14:15 | disposition left against medical advice (07) ==
LOC: M ED 13:37
DX: Z53.21 Procedure and treatment not carried out due to patient leaving prior to being seen by health care provider (principal)

== ENCOUNTER → 2023-09-16 | Outpatient (CLI) | payer OTHER ==
[~2023-09-16] MED LIST changes: +ISOVUE-370 76% 100ML VIAL As Ordered ONE
== END ==
LOC: M RAD 12:50
PROVIDERS: ATTEND Physician Assistant
DX: I70.213 Atherosclerosis of native arteries of extremities with intermittent claudication, bilateral legs (principal); I65.22 Occlusion and stenosis of left carotid artery
CPT/HCPCS: 75635; Q9967

== ENCOUNTER → 2023-10-06 | Outpatient (CLI) | payer OTHER ==
[2023-10-06 14:15] LABS: HEMATOCRIT 38.3 % (36.0-47.0); HEMOGLOBIN 11.9 g/dl (12.0-15.5); MEAN CORPUSCULAR HEMOGLOBIN 28.7 pg (27.0-33.0); MEAN CORPUSCULAR HGB CONC 31.1 g/dl (32.0-36.5); MEAN CORPUSCULAR VOLUME 92.3 fl (80.0-96.0); PLATELET COUNT, AUTOMATED 248 10^3/uL (150-450); RED BLOOD COUNT 4.15 10^6/uL (4.00-5.40); WHITE BLOOD COUNT 8.2 10^3/uL (4.0-10.0)
[2023-10-06 14:43] LABS: BLOOD UREA NITROGEN 14 MG/DL (9-23); CARBON DIOXIDE LEVEL 27 MMOL/L (20-31); CHLORIDE LEVEL 105 MMOL/L (98-107); CREATININE FOR GFR 0.71 MG/DL (0.55-1.30); GLOMERULAR FILTRATION RATE > 60.0 (>45); GLUCOSE, FASTING 114 MG/DL (74-106); POTASSIUM SERUM 4.3 MMOL/L (3.5-5.1); SODIUM LEVEL 140 MMOL/L (136-145)
[2023-10-06 14:59] LABS: HEMOGLOBIN A1c 5.9 % (4.0-6.0)
== END ==
LOC: M WUC 10:24
PROVIDERS: ATTEND Internal Medicine Cardiovascular Disease
DX: I48.0 Paroxysmal atrial fibrillation (principal)

== ENCOUNTER → 2024-10-06 | Outpatient (CLI) | payer OTHER ==
[2024-10-06 13:55] LABS: BASO # 0.1 10^3/uL (0.0-0.2); BASO % 0.8 % (0.0-1.0); EOS # 0.2 10^3/uL (0.0-0.5); EOS % 1.7 % (0.0-3.0); HEMATOCRIT 39.8 % (36.0-47.0); HEMOGLOBIN 12.4 g/dl (12.0-15.5); LYMPH # 1.9 10^3/uL (1.5-5.0); LYMPH % 22.1 % (24.0-44.0); MEAN CORPUSCULAR HEMOGLOBIN 28.5 pg (27.0-33.0); MEAN CORPUSCULAR HGB CONC 31.2 g/dl (32.0-36.5); MEAN CORPUSCULAR VOLUME 91.5 fl (80.0-96.0); MONO # 0.8 10^3/uL (0.0-0.8); MONO % 8.9 % (2.0-8.0); NEUTROPHILS # 5.7 10^3/uL (1.5-8.5); NEUTROPHILS % 66.3 % (36.0-66.0); PLATELET COUNT, AUTOMATED 266 10^3/uL (150-450); RED BLOOD COUNT 4.35 10^6/uL (4.00-5.40); WHITE BLOOD COUNT 8.6 10^3/uL (4.0-10.0)
[2024-10-06 14:25] LABS: FREE T4 1.46 NG/DL (0.89-1.76); THYROID STIMULATING HORMONE 3.309 uIU/ML (0.55-4.78)
[2024-10-06 14:26] LABS: ALBUMIN 3.4 G/DL (3.2-5.2); BILIRUBIN,TOTAL 0.7 MG/DL (0.3-1.2); CALCIUM LEVEL 9.5 MG/DL (8.3-10.6); CHOLESTEROL RISK RATIO 2.89 (<5); CREATININE FOR GFR 0.91 MG/DL (0.55-1.30); GLOMERULAR FILTRATION RATE 70.5 (>45); HDL CHOLESTEROL 46.9 MG/DL (>40); LDL CHOLESTEROL 71.7 MG/DL (<100); NON-HDL-C 89.1 MG/DL; POTASSIUM SERUM 4.1 MMOL/L (3.5-5.1); TOTAL PROTEIN 7.4 G/DL (5.7-8.2)
[2024-10-06 14:29] LABS: HEMOGLOBIN A1c 6.1 % (4.0-6.0)
== END ==
LOC: M WUC 12:18
DX: E11.9 Type 2 diabetes mellitus without complications (principal); J44.9 Chronic obstructive pulmonary disease, unspecified; K21.9 Gastro-esophageal reflux disease without esophagitis; E66.9 Obesity, unspecified; E78.5 Hyperlipidemia, unspecified

== ENCOUNTER 2025-04-08 22:23 | Emergency (ER) | payer OTHER ==
[~2025-04-08] VITALS: Ht 152.4 cm; Wt 76.8 kg
[~2025-04-08 22:23] MED LIST changes: -EZET10TA21; -EZET10TA21 PO; +EZET10TA57; +EZET10TA57 PO
[2025-04-08 22:26] VITALS: BP 220/50; TEMP 97.8; O2SAT 98
== END 2025-04-09 01:55 | disposition left against medical advice (07) ==
LOC: M ED 22:23
DX: Z53.21 Procedure and treatment not carried out due to patient leaving prior to being seen by health care provider (principal)